=== PATIENT | female | born 1985 | race Caucasian/White ===

== ENCOUNTER 2017-09-11 08:53 | Observation (INO) | payer OTHER, SELFPAY | END 2017-09-13 08:50 | disposition home or self-care (01) | PROVIDERS: Admitting Provider Internal Medicine Adolescent Medicine; Emergency Provider Emergency Medicine; Family Provider Physician Assistant; Visit Provider Internal Medicine Adolescent Medicine | DX: R10.31 Right lower quadrant pain (principal); K52.9 Noninfective gastroenteritis and colitis, unspecified | CPT/HCPCS: 36415; 74177; 80053; 81001; 81025; 82150; 83690; 84703; 85025; 87086; 87507; 96365; 96366; 96374; 96375; 99285; G0378; J1956; J2405; Q9967 ==

== ENCOUNTER → 2017-10-04 10:32 | Outpatient (CLI) | payer OTHER, SELFPAY ==
--- NOTE | 2017-10-04 10:38 | US_ITS ---
US abdomen limited HISTORY: ITS.REASON: ABD PAIN, NAUSEA, DIARRHEA ORDERING PHYSICIAN: Dina France PATIENT AGE: 32 years COMPARISON: CT scan of 09/11/2017 FINDINGS: Pancreas: Unremarkable. Liver: Unremarkable. Right kidney: Unremarkable. Gallbladder: No gallstones, pericholecystic fluid, biliary dilatation, or ductal dilatation. IMPRESSION: Negative right upper quadrant ultrasound
== END ==
PROVIDERS: Family Provider Physician Assistant; PCP Physician Assistant; Visit Provider Physician Assistant
DX: R10.84 Generalized abdominal pain (principal); R11.0 Nausea; R19.7 Diarrhea, unspecified
CPT/HCPCS: 76705

== ENCOUNTER → 2018-12-16 16:05 | Outpatient (CLI) | payer OTHER, SELFPAY ==
--- NOTE | 2018-12-16 16:41 | XR_ITS ---
XR chest 2V HISTORY: Shortness of air ITS.REASON: SOA ORDERING PHYSICIAN: Dina France PATIENT AGE: 33 years COMPARISON: None FINDINGS: The cardiomediastinal silhouette and pulmonary vascularity are within normal limits. The lungs are clear without infiltrates, suspicious nodules, or pleural effusions. No acute bony abnormalities. IMPRESSION: Negative chest, no acute finding
--- NOTE | 2018-12-16 16:42 | XR_ITS ---
XR KUB HISTORY: ITS.REASON: RECENT , SWELLING, ABD DISTENTION,ANEMIA ORDERING PHYSICIAN: Dina France PATIENT AGE: 33 years COMPARISON: 59 4 superior oblique manner no acute rib due to the July exam October) dictated: Degenerative FINDINGS: The bowel gas pattern is unremarkable. No obvious obstruction.. No abnormal calcifications are evident. No obvious renal or ureteral calculi.. No acute bony anomalies evident. There is mild amount of retained colonic feces IMPRESSION: Mild constipation
[2018-12-16 17:11] LABS: Basophils % 0.4 % (0.1-2.0); Eosinophils # 0.2 K/mm3 (0.0-0.4); Eosinophils % 2.2 % (0.1-12.0); Hematocrit 33.5 % (37.0-47.0); Hemoglobin 11.2 g/dL (12.2-16.2); Lymphocytes # 2.2 K/mm3 (0.7-4.5); Lymphocytes % 23.3 % (10-50); Mean Corpuscular HGB Conc 33.3 g/dL (31.8-35.4); Mean Corpuscular Volume 93.1 fl (81-99); Mean Platelet Volume 7.5 fl (7.4-10.4); Monocytes # 0.5 K/mm3 (0.1-1.0); Monocytes % 5.6 % (1.7-9.3); Neutrophils # 6.6 K/mm3 (1.8-7.8); Neutrophils % 68.6 % (37.0-80.0); Platelet Count 317 K/mm3 (142-424); Red Cell Distribution Width 13.8 % (11.5-17.5); White Blood Count 9.6 K/mm3 (4.8-10.8)
[2018-12-16 18:56] LABS: Alanine Aminotransferase 55 U/L (12-78); Albumin Level 2.4 gm/dL (3.4-5.0); Albumin/Globulin Ratio 0.7 (1.1-1.8); Alkaline Phosphatase 161 U/L (46-116); Anion Gap 15.1 mEq/L (5-15); Aspartate Amino Transferase 33 U/L (15-37); Bilirubin,Total 0.3 mg/dL (0.2-1.0); Blood Urea Nitrogen 9 mg/dL (7-18); Calcium 8.8 mg/dL (8.5-10.1); Carbon Dioxide 23 mmol/L (21.0-32.0); Chloride 108 mmol/L (98-107); Creatinine,Serum 0.68 mg/dL (0.55-1.02); Estimated Glomerular Filt Rate 100 ml/min (>60); GFR (African American) 121 ML/MIN (>60); Globulin 3.5 gm/dl (1.3-3.2); Glucose 72 mg/dL (74-106); Potassium 4.1 mmoL/L (3.5-5.1); Sodium 142 mmol/L (136-145); Total Protein,Serum 5.9 gm/dL (6.4-8.2)
== END ==
PROVIDERS: Visit Provider Physician Assistant
DX: Z98.890 Other specified postprocedural states (principal); R14.0 Abdominal distension (gaseous); R06.02 Shortness of breath; D64.9 Anemia, unspecified
CPT/HCPCS: 36415; 71046; 74018; 80053; 83880; 85025

== ENCOUNTER 2019-03-06 09:22 | Emergency (ER) | payer OTHER, SELFPAY ==
[2019-03-06 09:36] VITALS: BP 108/73; PULSE 73; RESP 16; TEMP 37.1; O2SAT 100; BMI 32.8
--- NOTE | 2019-03-06 09:36 | XR_ITS ---
XR wrist LT min 3V HISTORY ITS.REASON: pain ORDERING PHYSICIAN: Rafat Pathak APRN PATIENT AGE: 33 years Comparison: None FINDINGS: No fracture or dislocation. No lytic or blastic change. There is normal mineralization.. The joint spaces are well-preserved. No significant degenerative/arthritic changes. No erosive changes evident.. IMPRESSION: Negative wrist
--- NOTE | 2019-03-06 09:39 | HMH.EDUTC ---
[facility] – [place] Clinical Impression: Wrist pain, left Disposition: Home, Self-Care Condition on Discharge: Good Instructions: Tendinopathy, DI for Wrist Pain Additional Instructions: Rest your wrist, avoid activities that make the pain worse. Wear the wrist splint. Take the ibuprofen for pain and inflammation. I put in a referral to orthopedics. Please call Dr. Arriaza and get an appointment to let her check your wrist. Follow up with your regular doctor. GO TO THE ER FOR ANY WORSENING SYMPTOMS Prescriptions: Ibuprofen [Ibuprofen 600mg Tablet] 600 mg PO Q6HP PRN #30 tab PRN Reason: Mild Pain Referrals: Provider,Referral, MD [Primary Care Provider] - Time of Disposition: 10:01 Medical Decision Making - Medical Records Medical records reviewed: Yes: I reviewed the patient's medical records. - Ronal Inquiry Pt receiving controlled substance: No Ronal was queried for this patient: No Vital Signs: 03/06/19 09:36 03/06/19 10:04 Temperature 98.7 F 98.7 F Temperature Source Oral Oral Pulse Rate 73 Pulse Rate [Right Brachial] 73 Respiratory Rate 16 16 Blood Pressure 108/73 L Blood Pressure [Right Arm] 108/73 L Blood Pressure Mean [Right Arm] 84 Blood Pressure Source Automatic Cuff Blood Pressure Source [Right Arm] Automatic Cuff Blood Pressure Position Sitting Blood Pressure Position [Right Arm] Sitting 02 Sat by Pulse Oximetry 100 Oxygen Delivery Method Room Air Room Air - Radiology Data #1 Image(s): Wrist Image Reviewed: Yes I reviewed the patient's radiology image, Yes I have reviewed radiologist's interpretation Preliminary Findings: No Fracture Seen [facility] [place] HPI - General Stated complaint: Lt wrist pain Time Seen by Provider: 03/06/19 09:45 - History of Present Illness Provider Complaint: She c/o wrist pain that has been coming and going for the past 2 weeks or so. She denies any known injury. She did have a baby 2 months ago that she is carrying a lot. She thinks her pain may be related to this. She denies any swelling. - Related Data Previous Rx's Medication Instructions Recorded Ibuprofen [Ibuprofen 600mg 600 mg PO Q6HP PRN #30 tab 03/06/19 Tablet] Allergies Allergy/AdvReac Type Severity Reaction Status Date / Time No Known Allergies Allergy Verified 03/06/19 09:40 [facility] History - Hepatitis A Screen Attestation statement:: This patient has been screened for Hepatitis A risk factors. I have reviewed the patient's past medical history: Yes ROS Obtained: Yes All systems reviewed & no additional complaints - Constitutional Constitutional: Denies chills, Denies fever(s) - ENT Ears, Nose, Mouth, and Throat: Denies sore throat - Cardiovascular Cardiovascular: Denies chest pain - Respiratory Respiratory: No chest congestion, No cough - Musculoskeletal Musculoskeletal: Reports as per HPI - Integumentary/Breasts Skin/Breast: Denies redness, Denies rash, Denies wounds Physical Exam - General General appearance: alert, in no apparent distress - Head Head exam: atraumatic, normocephalic, normal inspection - Eye Eye exam: Present: normal appearance, PERRL, EOMI - ENT ENT exam: Present: normal exam, normal oropharynx, mucous membranes moist, TM's normal bilaterally, normal external ear exam - Neck Neck exam: Present: normal inspection, full ROM, trachea midline. Absent: meningismus, lymphadenopathy - Chest Chest inspection: Present: normal inspection, symmetric chest wall rise. Absent: tenderness - Respiratory Respiratory exam: Present: normal lung sounds bilaterally. Absent: respiratory distress - Cardiovascular Cardiovascular exam: Present: regular rate, normal rhythm. Absent: JVD - Abdominal Exam Abdominal exam: Present: soft, normal bowel sounds. Absent: distention, tenderness, guarding - Extremities Exam Extremities exam: Present: normal capillary refill - Expanded Upper Extre
--- NOTE | 2019-03-06 09:43 | ED_ITS ---
[facility] [place] [place] Clinical Impression: Wrist pain, left Disposition: Home, Self-Care Condition on Discharge: Good Instructions: Tendinopathy, DI for Wrist Pain Additional Instructions: Rest your wrist, avoid activities that make the pain worse. Wear the wrist splint. Take the ibuprofen for pain and inflammation. I put in a referral to orthopedics. Please call Dr. Arriaza and get an appointment to let her check your wrist. Follow up with your regular doctor. GO TO THE ER FOR ANY WORSENING SYMPTOMS Prescriptions: Ibuprofen [Ibuprofen 600mg Tablet] 600 mg PO Q6HP PRN #30 tab PRN Reason: Mild Pain Referrals: Provider,Referral, MD [Primary Care Provider] - Time of Disposition: 10:01 Medical Decision Making - Medical Records Medical records reviewed: Yes: I reviewed the patient's medical records. - Ronal Inquiry Pt receiving controlled substance: No Ronal was queried for this patient: No Vital Signs: 03/06/19 09:36 03/06/19 10:04 Temperature 98.7 F 98.7 F Temperature Source Oral Oral Pulse Rate 73 Pulse Rate [Right Brachial] 73 Respiratory Rate 16 16 Blood Pressure 108/73 L Blood Pressure [Right Arm] 108/73 L Blood Pressure Mean [Right Arm] 84 Blood Pressure Source Automatic Cuff Blood Pressure Source [Right Arm] Automatic Cuff Blood Pressure Position Sitting Blood Pressure Position [Right Arm] Sitting 02 Sat by Pulse Oximetry 100 Oxygen Delivery Method Room Air Room Air - Radiology Data #1 Image(s): Wrist Image Reviewed: Yes I reviewed the patient's radiology image, Yes I have reviewed radiologist's interpretation Preliminary Findings: No Fracture Seen [facility] [place] HPI - General Stated complaint: Lt wrist pain Time Seen by Provider: 03/06/19 09:45 - History of Present Illness Provider Complaint: She c/o wrist pain that has been coming and going for the past 2 weeks or so. She denies any known injury. She did have a baby 2 months ago that she is carrying a lot. She thinks her pain may be related to this. She denies any swelling. - Related Data Previous Rx's Medication Instructions Recorded Ibuprofen [Ibuprofen 600mg 600 mg PO Q6HP PRN #30 tab 03/06/19 Tablet] Allergies Allergy/AdvReac Type Severity Reaction Status Date / Time No Known Allergies Allergy Verified 03/06/19 09:40 [facility] [place] History - Hepatitis A Screen Attestation statement:: This patient has been screened for Hepatitis A risk factors. I have reviewed the patient's past medical history: Yes ROS Obtained: Yes All systems reviewed & no additional complaints - Constitutional Constitutional: Denies chills, Denies fever(s) - ENT Ears, Nose, Mouth, and Throat: Denies sore throat - Cardiovascular Cardiovascular: Denies chest pain - Respiratory Respiratory: No chest congestion, No cough - Musculoskeletal Musculoskeletal: Reports as per HPI - Integumentary/Breasts Skin/Breast: Denies redness, Denies rash, Denies wounds Physical Exam - General General appearance: alert, in no apparent distress - Head Head exam: atraumatic, normocephalic, normal inspection - Eye Eye exam: Presen
[2019-03-06 10:04] VITALS: BP 108/73; PULSE 73; RESP 16; TEMP 37.1; O2SAT 100
== END 2019-03-06 10:14 | disposition home or self-care (01) ==
PROVIDERS: Emergency Provider Nurse Practitioner Family
DX: M25.532 Pain in left wrist (principal)
CPT/HCPCS: 29125; 73110; 99201; 99202

== ENCOUNTER 2021-04-24 19:08 | Emergency (ER) | payer MEDICAID, SELFPAY ==
[2021-04-24 20:00] VITALS: BP 126/81; PULSE 90; RESP 22; TEMP 37.5; O2SAT 98; BMI 41.1
--- NOTE | 2021-04-24 20:20 | HMH.EDUTC ---
[facility] [place] Clinical Impression: UTI (urinary tract infection) Qualifiers: Urinary tract infection type: site unspecified Hematuria presence: with hematuria Qualified Code(s): N39.0 - Urinary tract infection, site not specified Disposition: Home, Self-Care Condition on Discharge: Good Instructions: Sore Throat, DI for Urinary Tract Infection (UTI), DI for Nasal Congestion, Nitrofurantoin Additional Instructions: *Monitor Temp, Over the counter Motrin or Tylenol as directed/as needed Tylenol every 4 hours and Motrin every 6 hours (as long as your family doctor has told you that you can take it) for fever or pain. and straight to ER if unable to lower temp less than 101.0 after medication given *Warm salt water gargles may help to soothe the throat *Throat Lozenges *Warm fluids like tea with honey may help to soothe the throat *Sleep elevated *Humidifier/Vaporizer Follow up IMMEDIATELY for new or worsening symptoms or no Noticeable improvement over the next 48-72 hours. 911 for difficulty breathing or swallowing *Increase fluids. Water not Soda or Tea *Start antibiotic immediately and be sure to take as ordered for the FULL length of time although you should start to see improvement over the next 48 hours *Be SURE to follow up anytime for new or worsening symptoms with your family doctor. AND in 48 hours for urine culture results with your family doctor, if you do not have a doctor then you may call back to the [facility] for urine culture results and further treatment. We do recommend that you choose and establish care with a Primary Care Physician. AND follow up with them in 10-14 days to repeat UA to ensure infection is resolved and blood no longer present *Be sure to let your PCP know that we sent urine cultures from the [facility] so they can follow up to ensure that you area the on the correct antibiotic Call your doctor office and make appointment for 48 hours (2 days from today) to follow up and get the results of your urine culture and further treatment You were tested for today for COVID19 your test result should be back in the next 24-48 hours, you may call to the [facility] to see if your test results are back in the next 48 hours [phone] [facility] hours are 9am-9pm You was given a handout with instructions for Self Quarantine and Self isolation for while you wait on test results and what to do if they are positive If you are positive the Health Dept will be contacting you also Prescriptions: Nitrofurantoin Monohyd/M-Cryst [Macrobid 100 mg Capsule] 100 mg PO BID 10 Days #20 cap Transmission Status: Sent to [facility] Referrals: Desi Mcgregor APRN [Primary Care Provider] - As needed Time of Disposition: 20:44 Medical Decision Making - Ronal Inquiry Pt receiving controlled substance: No Ronal was queried for this patient: No Vital Signs: 04/24/21 20:00 Temperature 99.5 F Temperature Source Oral Pulse Rate [Right Brachial] 90 Respiratory Rate 22 Blood Pressure [Right Arm] 126/81 Blood Pressure Mean [Right Arm] 96 Blood Pressure Source [Right Arm] Automatic Cuff Blood Pressure Position [Right Arm] Sitting 02 Sat by Pulse Oximetry 98 Oxygen Delivery Method Room Air - Lab Data Lab results reviewed: Yes: I reviewed the patient's lab results. Lab Results 04/24/21 19:45: Urine Color Yellow, Urine Appearance Cloudy, Urine pH 7.5, Ur Specific [place] 1.015, Urine Protein Negative, Urine Glucose (UA) Negative, Urine Ketones Negative, Urine Blood Trace, Urine Nitrate Positive A, Urine Bilirubin Negative, Urine Urobilinogen 1, Ur Leukocyte Esterase 2+ A Orders (Tests/Meds): ED MEDICATIONS Discontinued Medications Generic Name Dose Route Start Last Admin Trade Name Asa PRN Reason Stop Dose Admin Ceftriaxone Sodium 1 gm 04/24/21 20:26 04/24/21 20:38 Ceftriaxone 1gm Vial IM 04/24/21 20:27 1 gm ONCE ONE Administration Protocol Lidocaine HCl 0 ml 04/24/21 20:26 04/24/21 20:38
[2021-04-24 20:41] LABS: Apearance,Urine Cloudy (Clear); Color,Urine Yellow (Yellow); PH,Urine 7.5 (5.0-8.5); Specific Gravity, Urine 1.015 (1.005-1.030)
[2021-04-24 20:42] LABS: Bilirubin,Urine Negative (Negative); Blood, Urine Trace (Negative); Glucose,Urine (UA) Negative (Negative); Ketones,Urine Negative (Negative); Protein,Urine Negative (Negative); UTC Leukocyte Esterase,Urine 2+ (Negative); UTC Nitrate,Urine Positive (Negative); Urobilinogen,Urine 1 EU/dl (0.2)
[2021-04-24 20:53] VITALS: BP 126/81; PULSE 90; RESP 22; TEMP 37.5; O2SAT 98
--- NOTE | 2021-04-25 12:16 | PC.NURSE ---
Patient called to get covid results, reported as positive. Advised patient to quarantine and expect a call from the health department for further instructions.
== END 2021-04-24 20:58 | disposition home or self-care (01) ==
PROVIDERS: Emergency Provider Nurse Practitioner; PCP Nurse Practitioner Family
DX: N30.00 Acute cystitis without hematuria (principal); B96.20 Unspecified Escherichia coli [E. coli] as the cause of diseases classified elsewhere; U07.1 COVID-19; F17.210 Nicotine dependence, cigarettes, uncomplicated
CPT/HCPCS: 81003; 87086; 87088; 87186; 96372; 99202; G0463; U0003

== ENCOUNTER 2021-05-02 15:56 | Emergency (ER) | payer MEDICAID, SELFPAY ==
[2021-05-02 15:59] VITALS: BMI 26.6
--- NOTE | 2021-05-02 16:04 | XR_ITS ---
PROCEDURE: XR ANKLE RT MIN 3V CLINICAL INDICATION: FALL/INJURY Pain and swelling COMPARISON: CR ANKR3 ANKLE-RT-3 VIEWS from 09/29/2015 FINDINGS: There is mild diffuse soft tissue swelling on both sides greater on the lateral aspect. No fracture or dislocation. Mortise is preserved and the talar dome has an unremarkable appearance. The joint spaces are well-preserved. No significant degenerative/arthritic changes. No erosive changes evident. Other findings:None. IMPRESSION: Soft tissue swelling otherwise negative Dictated by: Leland Ho MD 05/02/2021 16:20 Leland Ho MD in [place] 05/02/2021 16:20
[2021-05-02 16:52] VITALS: BP 131/81; PULSE 78; RESP 19; TEMP 36.7; O2SAT 97; BMI 41.1
[2021-05-02 16:57] VITALS: BP 131/81; PULSE 78; RESP 18; TEMP 36.7; O2SAT 97
--- NOTE | 2021-05-02 17:25 | HMH.EDUTC ---
[facility] [place] Clinical Impression: Right ankle sprain Qualifiers: Encounter type: initial encounter Involved ligament of ankle: unspecified ligament Qualified Code(s): S93.401A - Sprain of unspecified ligament of right ankle, initial encounter Disposition: Home, Self-Care Condition on Discharge: Good Instructions: How to Use Crutches, DI for Ankle Sprain Additional Instructions: Rest the extremity, apply ice for 15 minutes as tolerated three or four times per day, Elevate the extremity as tolerated while you are resting. Take ibuprofen for pain. I sent in a prescription to your pharmacy. Follow up with Dr. Wolfe (podiatry). I put in a referral but you need to call her office and schedule an appointment. Follow up with your regular doctor. GO TO THE ER FOR ANY WORSENING SYMPTOMS Prescriptions: Ibuprofen [Ibuprofen 800mg Tablet] 800 mg PO Q8HP PRN #30 tab PRN Reason: Moderate Pain Transmission Status: Received by [facility] Referrals: Desi Mcgregor APRN [Primary Care Provider] - Radha Wolfe DPM [Staff Physician] - Time of Disposition: 17:29 Medical Decision Making - Medical Records Medical records reviewed: No: I reviewed the patient's medical records. - Ronal Inquiry Pt receiving controlled substance: No Vital Signs: 05/02/21 16:52 05/02/21 16:57 Temperature 98.1 F 98.1 F Temperature Source Oral Pulse Rate 78 Pulse Rate [Left] 78 Respiratory Rate 19 18 Blood Pressure 131/81 Blood Pressure [Right Arm] 131/81 Blood Pressure Mean [Right Arm] 97 02 Sat by Pulse Oximetry 97 Orders (Tests/Meds): ORDERS Category Date Time Status Covid-19 Nasal PCR ([facility]) Routine Lab 05/02/21 16:49 Received - Radiology Data #1 Image(s): Ankle Image Reviewed: Yes I reviewed the patient's radiology image, Yes I have reviewed radiologist's interpretation Preliminary Findings: Normal/NAD PROCEDURE: XR ANKLE RT MIN 3V CLINICAL INDICATION: FALL/INJURY Pain and swelling COMPARISON: CR ANKR3 ANKLE-RT-3 VIEWS from 09/29/2015 FINDINGS: There is mild diffuse soft tissue swelling on both sides greater on the lateral aspect. No fracture or dislocation. Mortise is preserved and the talar dome has an unremarkable appearance. The joint spaces are well-preserved. No significant degenerative/arthritic changes. No erosive changes evident. Other findings:None. IMPRESSION: Soft tissue swelling otherwise negative Dictated by: Leland Ho MD 05/02/2021 16:20 Leland Ho MD in [place] 05/02/2021 16:20 [facility] [place] - General Stated complaint: AO fall 05/01 injured R ankle Time Seen by Provider: 05/02/21 16:55 Mode of Arrival: Ambulatory Source of Information: Patient Limitations: No Limitations Description of Symptoms (Recalled from Triage Doc. by RN): Right ankle pain-Pt states she fell yesterday and her ankle is swollen and bruised. HEENT Symptoms (Recalled from RN notes): No Resp Symptoms (Recalled from RN notes): No Skin Symptoms (Recalled from RN notes): No MS Symptoms (Recalled from RN notes): Yes Functional Status (Recalled from RN notes): wnl - History of Present Illness Provider Complaint: She states that she twisted her right ankle while going down stairs yesterday at her school. She c/o right ankle pain and swelling since then. She is able to walk on it, but it hurts any time she bears weigth or bends it. - Related Data Previous Rx's Medication Instructions Recorded Ibuprofen [Ibuprofen 600mg 600 mg PO Q6HP PRN #30 tab 03/06/19 Tablet] Nitrofurantoin Monohyd/M-Cryst 100 mg PO BID 10 Days #20 cap 04/24/21 [Macrobid 100 mg Capsule] Ibuprofen [Ibuprofen 800mg 800 mg PO Q8HP PRN #30 tab 05/02/21 Tablet] Allergies Allergy/AdvReac Type Severity Reaction Status Date / Time No Known Allergies Allergy Verified 05/02/21 16:20 - Worker's Comp Is this a Worker's Comp case?: No [facility] History - Hepat
--- NOTE | 2021-05-03 13:39 | PC.NURSE ---
PT NOTIFIED OF POSITIVE COVID RESULTS
== END 2021-05-02 17:38 | disposition home or self-care (01) ==
PROVIDERS: Emergency Provider Nurse Practitioner Family; PCP Nurse Practitioner Family
DX: S93.401A Sprain of unspecified ligament of right ankle, initial encounter (principal); W10.9XXA Fall (on) (from) unspecified stairs and steps, initial encounter; Y92.89 Other specified places as the place of occurrence of the external cause; U07.1 COVID-19; F17.210 Nicotine dependence, cigarettes, uncomplicated
CPT/HCPCS: 29515; 73610; 99203; G0463; U0003

== ENCOUNTER 2021-09-21 17:28 | Emergency (ER) | payer MEDICAID, SELFPAY ==
[2021-09-21 17:41] VITALS: BP 120/55; PULSE 85; RESP 18; TEMP 36.8; O2SAT 96; BMI 42.2
--- NOTE | 2021-09-21 18:13 | HMH.EDUTC ---
[facility] [place] Clinical Impression: Otitis media Qualifiers: Otitis media type: unspecified Laterality: left Qualified Code(s): H66.92 - Otitis media, unspecified, left ear Otitis externa Qualifiers: Otitis externa type: unspecified type Chronicity: unspecified Laterality: left Qualified Code(s): H60.92 - Unspecified otitis externa, left ear Disposition: Home, Self-Care Condition on Discharge: Good Instructions: Middle Ear Infections (Alternative Therapy), Middle Ear Infection, DI for Otitis Externa, Amoxicillin, Neomycin, Polymyxin, and Hydrocortisone Otic Additional Instructions: Use the drops as prescribed in left ear as directed Take oral medication as prescribed Follow up with Family Doctor if no improvement or any worsening of symptoms Over the counter Motrin and/or Tylenol for pain Return if needed Straight to ER if any life threatening Prescriptions: Amoxicillin [Amoxicillin 500mg Cap] 500 mg PO TID #30 cap Transmission Status: Pending to [facility] Neomycin/Polymyxin B Sulf/Hc [Ijcxuddw-Eblrkbhfc-ZA Otic Susp 10mL] 4 drops EAR-LEFT QID 7 Days #10 ml Transmission Status: Pending to [facility] Referrals: Desi Mcgregor APRN [Primary Care Provider] - As needed Time of Disposition: 18:21 Medical Decision Making - Ronal Inquiry Pt receiving controlled substance: No Ronal was queried for this patient: No Vital Signs: 09/21/21 17:41 Temperature 98.2 F Temperature Source Oral Pulse Rate [Left] 85 Respiratory Rate 18 Blood Pressure [Right Arm] 120/55 L Blood Pressure Mean [Right Arm] 76 02 Sat by Pulse Oximetry 96 [facility] [place] - General Stated complaint: L ear pain Time Seen by Provider: 09/21/21 18:13 Mode of Arrival: Ambulatory Source of Information: Patient Limitations: No Limitations Description of Symptoms (Recalled from Triage Doc. by RN): pt c/o a L ear ache and fever. x5 days HEENT Symptoms (Recalled from RN notes): Yes (L ear ache) Resp Symptoms (Recalled from RN notes): No Skin Symptoms (Recalled from RN notes): No MS Symptoms (Recalled from RN notes): No Functional Status (Recalled from RN notes): wnl - History of Present Illness Provider Complaint: Patient states that she has been having pain in her left ear for about 5 days and state that ear hurts when she touchs it and feels like it is starting to swell States that today her ear was hurting worse so she came in - Related Data Previous Rx's Medication Instructions Recorded Ibuprofen [Ibuprofen 600mg 600 mg PO Q6HP PRN #30 tab 03/06/19 Tablet] Nitrofurantoin Monohyd/M-Cryst 100 mg PO BID 10 Days #20 cap 04/24/21 [Macrobid 100 mg Capsule] Ibuprofen [Ibuprofen 800mg 800 mg PO Q8HP PRN #30 tab 05/02/21 Tablet] Amoxicillin [Amoxicillin 500mg 500 mg PO TID #30 cap 09/21/21 Cap] Neomycin/Polymyxin B Sulf/Hc 4 drops EAR-LEFT QID 7 Days #10 ml 09/21/21 [Tnhjdact-Znugzrqjm-BX Otic Susp 10mL] Allergies Allergy/AdvReac Type Severity Reaction Status Date / Time No Known Allergies Allergy Verified 05/02/21 16:20 - Worker's Comp Is this a Worker's Comp case?: No [facility] History - Hepatitis A Screen Drug use history?: No High risk sexual behaviors?: No History of sexually transmitted infection?: No Currently employed?: No Childcare worker?: No Do you have indoor plumbing?: Yes Do you have electricity?: Yes Attestation statement:: This patient has been screened for Hepatitis A risk factors. I have reviewed the patient's past medical history: Yes Laterality Cases: Bilateral: Tonsillectomy Fractures: Yes (SKULL AND RIGHT HAND) - Social History Smoking Status: Current every day smoker Tobacco Type: cigarettes # Packs/Day (cigarettes): 1 Alcohol Intake: never Occupational Status: other ROS Obtained: Yes All systems reviewed & no additional complaints, Yes Systems reviewed as appropriate & no additional complaints - Constitutional Constitutional: R
[2021-09-21 18:21] VITALS: BP 120/55; PULSE 85; RESP 18; TEMP 36.8
== END 2021-09-21 18:32 | disposition home or self-care (01) ==
PROVIDERS: Emergency Provider Nurse Practitioner; PCP Nurse Practitioner Family
DX: H66.92 Otitis media, unspecified, left ear (principal); H60.92 Unspecified otitis externa, left ear; F17.210 Nicotine dependence, cigarettes, uncomplicated
CPT/HCPCS: 99202; G0463

== ENCOUNTER 2023-05-18 14:13 | Emergency (ER) | payer OTHER, MEDICAID, SELFPAY ==
[2023-05-18 14:11] VITALS: BP 145/97; PULSE 99; RESP 20; TEMP 36.7; O2SAT 100; BMI 38.2
--- NOTE | 2023-05-18 14:13 | ECG_ITS ---
APPROVED REPORT Exam: Resting ECG HR:99 bpm ECG Measurements Heart Rate 99 AXES TN 141 P 63 QRSd 89 QRS 66 QT 350 T 63 QTc 406 Conclusion SINUS RHYTHM NORMAL ECG UNCONFIRMED REPORT Electronically signed by : Aj Palma MD 05/21/2023 17:25:54
[2023-05-18 14:21] VITALS: BMI 38.2
--- NOTE | 2023-05-18 14:21 | XR_ITS ---
PROCEDURE INFORMATION: Exam: XR Chest Exam date and time: 05/18/23 03:18 PM Age: 38 years old Clinical indication: Pain; Chest pressure; Additional info: Chest pain TECHNIQUE: Imaging protocol: Radiologic exam of the chest. Views: 1 view. COMPARISON: CR CXR2V XR chest 2V 12/16/18 04:43 PM FINDINGS: Lungs: Unremarkable. No consolidation. Pleural spaces: Unremarkable. No pleural effusion. No pneumothorax. Heart/Mediastinum: Unremarkable. No cardiomegaly. Bones/joints: Unremarkable. IMPRESSION: No acute findings.
[2023-05-18 14:31] VITALS: BP 125/75; PULSE 79; O2SAT 96
[2023-05-18 14:35] LABS: Basophils # 0.1 K/mm3 (0-0.2); Basophils % 0.7 % (0.1-2.0); Eosinophils # 0.2 K/mm3 (0.0-0.4); Eosinophils % 2.5 % (0.1-12.0); Hematocrit 43.3 % (37.0-47.0); Hemoglobin 14.2 g/dL (12.2-16.2); Lymphocytes % 26.6 % (10-50); Mean Corpuscular HGB Conc 32.9 g/dL (31.8-35.4); Mean Corpuscular Hemoglobin 30.1 pg (27.0-31.2); Mean Corpuscular Volume 91.6 fl (81-99); Mean Platelet Volume 7.4 fl (7.4-10.4); Monocytes # 0.5 K/mm3 (0.1-1.0); Monocytes % 6.9 % (1.7-9.3); Neutrophils # 4.7 K/mm3 (1.8-7.8); Neutrophils % 63.3 % (37.0-80.0); Platelet Count 329 K/mm3 (142-424); Red Blood Count 4.72 M/mm3 (4.20-5.40); Red Cell Distribution Width 13.3 % (11.5-17.5); White Blood Count 7.4 K/mm3 (4.8-10.8)
[2023-05-18 14:36] LABS: Chloride 104 mmol/L (98-107); Potassium 3.8 mmoL/L (3.5-5.1); Sodium 140 mmol/L (136-145)
[2023-05-18 14:39] LABS: Alanine Aminotransferase 58 U/L (12-78); Albumin Level 3.9 g/dl (3.5-5.0); Albumin/Globulin Ratio 1.2 (1.1-1.8); Alkaline Phosphatase 118 U/L (38-126); Anion Gap 12.8 mEq/L (5-15); Aspartate Amino Transferase 70 U/L (14-36); Bilirubin,Total 0.5 mg/dl (0.2-1.3); Blood Urea Nitrogen 10 mg/dl (7-17); Carbon Dioxide 27 mmol/L (22.0-30.0); Creatinine Clearance Estimated 211 mL/min (50-200); Estimated Glomerular Filt Rate 112 ml/min (>60); GFR (African American) 136 ML/MIN (>60); Globulin 3.2 g/dL (1.3-3.2); Total Protein,Serum 7.1 g/dl (6.3-8.2)
[2023-05-18 14:40] LABS: Calcium 9.2 mg/dl (8.4-10.2); Glucose 99 mg/dl (74-100)
--- NOTE | 2023-05-18 14:42 | HMH.EDGENADL ---
Discharge Plan Disposition Patient Disposition: Home, Self-Care Condition: Good Prescriptions Prescriptions: No Action prednisone 20 mg tablet 40 mg PO DAILY Qty: 8 0RF codeine-guaifenesin 10-100 mg/5 mL liquid 10 ml PO Q4-6H PRN (Reason: cough) Qty: 120 1RF citalopram [Celexa] 20 mg tablet 20 mg PO DAILY 30 Days Qty: 30 0RF Referrals Follow up/Referrals: Provider,Referral, [Referring] - See instructions Activity Restrictions/Add. Instructions Additional Instructions/Restrictions: You were evaluated in the emergency department today. Please follow-up closely with your primary care provider. Return to the emergency department for new or worsening symptoms. Clinical Impressions Clinical Impression: Atypical chest pain Instructions Patient Instructions: DI for Atypical Chest Pain Discharge ED Provider: Hailey Jack General Adult HPI <Ora Hale MD - Last Filed: 05/18/23 14:46> General Chief complaint: Chest Pain Stated complaint: chest pain Time Seen by Provider: 05/18/23 14:37 Mode of Arrival: Ambulatory Source of Information: Patient Limitations: No Limitations Description of Symptoms (Recalled from ER Triage Doc. by RN): Pt reports mid sternal area chest pressure. Reports began approx 1:30 pm today. Pt denies radiation of pain, denies SOA, cough or fever. Pt reports laying on cough at home when pain started. History of Present Illness HPI narrative: Patient is a 38-year-old here with chest pain. This began abruptly at 1:30 PM today she describes it as a chest discomfort or pressure extending over the bilateral anterior aspect of her chest wall. No radiation there was some dyspnea which is improving. No diaphoresis associated with this. No history of DVT or PE no lower extremity swelling hemoptysis prolonged immobilizations or other risk factors. She has no history of any coronary artery disease heart failure or any other cardiopulmonary pathology in the past. States she has had some significant anxiety and stress recently but nothing out of the ordinary today. No fevers chills cough or any other preceding symptoms. Related Data Previous Rx's Medication Instructions Recorded citalopram 20 mg tablet (Celexa) 20 mg PO DAILY 30 days #30 tabs 07/19/22 codeine 10 mg-guaifenesin 100 mg/5 10 ml PO Q4-6H PRN cough #120 mL 08/20/22 mL oral liquid prednisone 20 mg tablet 40 mg PO DAILY #8 tabs 08/20/22 Allergies Allergy/AdvReac Type Severity Reaction Status Date / Time No Known Allergies Allergy Verified 08/20/22 13:55 [facility] <Ora Hale MD - Last Filed: 05/18/23 14:46> [facility] Disclaimer: The information contained in this section may have been updated after the patient was seen, as this information can be updated by other users. Medical History Anxiety Depression Surgical History H/O section History of skin graft Hx of tonsillectomy Hx of tubal ligation Family History Father Hypertension Hyperlipidemia Diabetes Coronary artery disease Mother Thyroid disorder Hyperlipidemia Hypertension Social History Smoking Status: Current some day smoker tobacco type: cigarettes packs per day: 1 and e-cigarettes (vapes) second hand exposure: No alcohol intake: never current occupational status: student and other Travel in the last 8 weeks: None household members: family housing: house <Ora Hale MD - Last Filed: 05/18/23 14:46> ROS Obtained: Yes All systems reviewed & no additional complaints except as documented Physical Exam <Ora Hale MD - Last Filed: 05/18/23 14:46> General General appearance: anxious (Tearful) Respiratory Respiratory exam: Present normal lung sounds bilaterally; Absent respiratory distress, wheezes or strid
[2023-05-18 14:54] LABS: Troponin I < 0.01 ng/ml (0.00-0.034)
[2023-05-18 15:00] VITALS: BP 123/78; PULSE 84; RESP 18; O2SAT 98
[2023-05-18 15:00] LABS: D-Dimer 0.34 ug/mL (0.0-0.5)
[2023-05-18 18:37] LABS: Troponin I < 0.01 ng/ml (0.00-0.034)
[2023-05-18 19:00] VITALS: BP 131/82; PULSE 87; RESP 16; TEMP 36.7; O2SAT 98
== END 2023-05-18 19:00 | disposition home or self-care (01) ==
PROVIDERS: Student in an Organized Health Care Education/Training Program; Emergency Provider Emergency Medicine; PCP Nurse Practitioner Family
DX: R07.89 Other chest pain (principal); R06.00 Dyspnea, unspecified; R00.0 Tachycardia, unspecified; F41.9 Anxiety disorder, unspecified; F32.A Depression, unspecified; F17.210 Nicotine dependence, cigarettes, uncomplicated
CPT/HCPCS: 36415; 71045; 80053; 84484; 85025; 85378; 93005; 99285

== ENCOUNTER 2023-11-14 06:50 | Outpatient (CLI) | payer MEDICAID, SELFPAY | END 2023-11-14 23:59 | LOC: LAB.DROPOF 11-18 06:51 | PROVIDERS: PCP Family Medicine; Visit Provider Family Medicine | DX: N39.0 Urinary tract infection, site not specified (principal); B96.29 Other Escherichia coli [E. coli] as the cause of diseases classified elsewhere | CPT/HCPCS: 87086 ==

== ENCOUNTER 2025-03-05 13:30 | Outpatient (CLI) | payer OTHER, SELFPAY ==
--- OUTSIDE RECORDS SUMMARY | 2025-03-05 22:36 | XMS_ITS | Clinical Summary ---
Author Organization [facility] Address [address] [id number] Care Team Providers Care Clay Washer Name Role Phone Unavailable Primary Care Provider Unavailabl e Allergies No known active allergies Medications promethazine (PHENERGAN) 25 mg tabletIndication s:9 weeks gestation of ([facility]),Nausea Take 1 Tab by mouth Every 4 to 6 Hours as needed for Nausea. 30 Tab 05/15/2018 Active prenat.vits,mindi, tcd-vaji-rcjka ( VITAMIN) TabIndications:9 weeks gestation of ([facility]) Take 1 TAB by mouth Daily. 30 Each 3 05/15/2018 Active Active Problems Problem Noted Date Diagnosed Date Cough 12/17/2017 Gastroesophageal reflux disease without esophagi tis 12/17/2017 Social History Tobacco Use Types Packs/Day Years Used Date Smoking Tobacco: Every Day Cigarettes Smokeless Tobacco: Never Tobacco Cessation:Ready to Q uit: No; Counseling Given: No Alcohol Use Standard Drinks/Week Comments No 0 (1 standard drink = 0.6 oz pur e alcohol) Comments Unknown Sex and Gender Information Value Date Recorded Sex Assigned at Not on file Legal Sex Female 10:26 AM EST Gender Identity Not on file Sexual Orientation Not on file Last Filed Vital Signs Vital Sign Reading Time Taken Comments Blood Pressure 109/70 05/15/2018 10:05 AM EDT Pulse 80 05/15/2018 10:05 AM EDT Temperature 36.6 C (97.8 F) 05/15/2018 10:05 AM EDT Respiratory Rate 16 05/15/2018 10:05 AM EDT Oxygen Saturation 100% 02/26/2018 9:42 AM EDT Inhaled Oxygen Concentration - - Weight 93 kg (205 lb) 05/15/2018 10:05 AM EDT Height 162.6 cm (5' 4 ) 05/15/2018 10:05 AM EDT Body Mass Index 35.19 05/15/2018 10:05 AM EDT Plan of Treatment Health Maintenance Due Date Last Done Comments HEP C SCREENING 1986 PAP SMEAR EVERY 3 YR (Cervic al Cancer Screen) 1986 ANNUAL WELLNESS EXAM 1989 DTAP/TDAP/TD VACCINE (1 - Tdap) 2005 INFLUENZA VACCINE (Season Ended) 2025 HEP A VACCINE Aged Out No longer elig ible based on patient's age to complete this topic HIB VACCINE Aged Out No longer eligi ble based on patient's age to complete this topic ROTOVIRUS VACCINE Aged Out No longer eligible based on patient's age to complete this topic
--- OUTSIDE RECORDS SUMMARY | 2025-03-05 22:36 | XMS_ITS | Clinical Summary ---
Author Organization [facility] Address [address] [place] [address] Care Team Providers Care Per Diem Physical Therapist Name Role Phone Jessy Ferguson APRN Primary Care Provider Family History Medical History Relation Name Comments Diabetes Father Relation Name Status Comments Father Social History Tobacco Use Types Packs/Day Years Used Date Smoking Tobacco: Never Assessed Comments Unknown Sex and Gender Information Value Date Recorded Sex Assigned at Not on file Legal Sex Female 7:55 PM EDT Gender Identity Not on file Sexual Orientation Not on file Last Filed Vital Signs Vital Sign Reading Time Taken Comments Blood Pressure 108/60 05/23/2018 3:07 PM EDT Pulse - - Temperature - - Respiratory Rate - - Oxygen Saturation - - Inhaled Oxygen Concentration - - Weight 93.9 kg (207 lb 0.2 oz) 05/23/2018 3:07 P M EDT Height 165.1 cm (5' 5 ) 05/23/2018 3:07 PM EDT Body Mass Index 34.45 05/23/2018 3:07 PM EDT Plan of Treatment Not on file Care Teams Per Diem Physical Therapist Relationship Specialty Start Date End Date Jessy Ferguson APRN [address] [place] [address] PCP - General 02/03/21
--- OUTSIDE RECORDS SUMMARY | 2025-03-05 22:36 | XMS_ITS | Encounter Summary ---
Author Organization [facility] [place] Address [address] [place] [address] Care Team Providers Care Bar Back Name Role Phone Jessy Ferguson APRN Primary Care Provider [phone] Encounter Details Date Type Department Care Team (Late st Contact Info) Description 03/05/2018 Orders Only [facility] [address] [place] [address] Jessy Ferguson APRN [address] [place] [address] Morbid obesity due to excess calories (Primary Dx) Social History Tobacco Use Types Packs/Day Years Used Date Smoking Tobacco: Every Day Cigarettes Smokeless Tobacco: Never Alcohol Use Standard Drinks/Week Comments No 0 (1 standard drink = 0.6 oz pur e alcohol) Comments Unknown Sex and Gender Information Value Date Recorded Sex Assigned at Not on file Legal Sex Female 10:26 AM EST Gender Identity Not on file Sexual Orientation Not on file documented as of this encounter Plan of Treatment Not on file documented as of this encounter Visit Diagnoses Diagnosis Morbid obesity due to excess calories (CMS/HCC)- Primary documented in this encounter Care Teams Bar Back Relationship Specialty Start Date End Date Jessy Ferguson APRN [address] [place] [address] PCP - General Family Practice 10/21/17 11/08/22 documented as of this encounter
== END 2025-03-05 23:59 | disposition home or self-care (01) ==
LOC: LAB.DROPOF 22:34
PROVIDERS: PCP Nurse Practitioner Family; Visit Provider Nurse Practitioner Family
DX: R39.9 Unspecified symptoms and signs involving the genitourinary system (principal); N39.0 Urinary tract infection, site not specified
CPT/HCPCS: 87086; 87088; 87186

== ENCOUNTER 2025-06-13 18:33 | Emergency (ER) | payer OTHER, SELFPAY ==
--- NOTE | 2025-06-13 18:54 | HMH.EDGENADL ---
Discharge Plan Disposition Patient Disposition: Home, Self-Care Condition: Good Prescriptions Prescriptions: No Action ibuprofen 800 mg tablet 800 mg PO Q8H Qty: 90 2RF hydrocodone-acetaminophen 5-325 mg tablet 1 tab PO Q8H PRN (Reason: pain) Qty: 30 0RF Zepbound 12.5 mg/0.5 mL pen injector 12.5 mg SQ WEEKLY hydroxyzine pamoate 50 mg capsule 50 mg PO BID PRN (Reason: anxiety) Qty: 60 2RF citalopram 40 mg tablet See Rx Instructions .ROUTE .COMPLEX Qty: 30 1RF Dose Instruction: TAKE 1 TABLET BY MOUTH ONCE DAILY Rx Instructions: TAKE 1 TABLET BY MOUTH ONCE DAILY clonazepam 0.5 mg tablet 0.5 mg PO DAILY PRN (Reason: severe anxiety) Qty: 14 0RF Referrals Follow up/Referrals: Susan Powers APRN [Primary Care Provider, Family Practice] - See instructions Chavo Lozoya DO [Staff Physician, Orthopedics] - See instructions Activity Restrictions/Add. Instructions Additional Instructions/Restrictions: Use the walking boot until you follow-up in clinic with Dr. Lozoya. Call them tomorrow to schedule an appointment. Take tylenol and ibuprofen as needed for pain control. Clinical Impressions Clinical Impression: Acute ankle pain, Avulsion fracture of calcaneus Print Language Print Language: Faroese Discharge ED Provider: Ignacia Terry Adult HPI General Chief complaint: Extremity Injury, Lower Stated complaint: AO Fall 1800; Injured R Ankle Time Seen by Provider: 06/13/25 18:53 History of Present Illness HPI narrative: Patient is an otherwise healthy 40-year-old female who presented to the emergency department with a right ankle injury. Patient tripped and fell landed onto her right ankle. Patient has been able to ambulate but with pain. Patient reports pain is on the top of the foot. Patient denies any leg pain knee pain or other extremity pain. Patient did not hit her head did not lose consciousness. Patient is not on any blood thinners. Related Data Home Medications ?Medication ?Instructions ?Recorded ?Confirmed tirzepatide (weight loss) 12.5 12.5 mg SQ WEEKLY 11/04/24 06/17/25 mg/0.5 mL subcutaneous pen injector (Zepbound) Previous Rx's ?Medication ?Instructions ?Recorded hydroxyzine pamoate 50 mg capsule 50 mg PO BID PRN anxiety #60 caps 05/14/25 citalopram 40 mg tablet See Rx Instructions .Route 05/27/25 .COMPLEX #30 tabs clonazepam 0.5 mg tablet 0.5 mg PO DAILY PRN severe anxiety 06/14/25 #14 tabs hydrocodone 5 mg-acetaminophen 325 1 tab PO Q8H PRN pain #30 tabs 06/15/25 mg tablet ibuprofen 800 mg tablet 800 mg PO Q8H #90 tabs 06/17/25 Allergies Allergy/AdvReac Type Severity Reaction Status Date / Time No Known Allergies Allergy Verified 06/17/25 10:47 [facility] Disclaimer: The information contained in this section may have been updated after the patient was seen, as this information can be updated by other users. Medical History Depression Anxiety Surgical History History of skin graft Hx of tubal ligation H/O section Hx of tonsillectomy Family History Father Hypertension Hyperlipidemia Diabetes Coronary artery disease Mother Thyroid disorder Hyperlipidemia Hypertension Social History Smoking Status: Never smoker second hand exposure: No alcohol intake: never current occupational status: student and other Travel in the last 8 weeks?: None household members: family housing: house Have you lived/traveled outside US in past 30 days?: No Contact w/someone who lives/traveled outside US past 30 days?: No Exposure to someone with infectious disease in past 14 days?: No Do you have a fever (greater than 100.4 F or 38 C)?: No Have you tested positive for COVID-19?: No Exposed to someone with COVID-19 in past 14 days?: No Do you have a sore throat?: No Do you have a cough?: No Do you have shortness of breath?: No Do you have a headache?: No Do you have any weakness?: No Are you experiencing any nausea/vomitting?: No Do you have any diarrhea?: No Are you experiencing any unusual bleeding?: No Do you have any muscle aches/pain?: No Do you have any abdominal pain?: No Are you experiencing loss of taste or smell?: No Other Medical History Have you received the Pneumonia Vaccine: No ROS Obtained: Yes All systems reviewed & no additional complaints except as documented and Yes Systems reviewed as appropriate & no additional complaints except as documented Physical Exam General General appearance: alert and in no apparent distress Head Head exam: atraumatic, normocephalic and normal inspection Eye Eye exam: Present normal appearance, PERRL and EOMI; Absent scleral icterus ENT ENT exam: Present normal exam and normal external ear exam Neck Neck exam: Present normal inspection and full ROM Chest Chest inspection: Present normal inspection and symmetric chest wall rise Respiratory Respiratory exam: Present normal lung sounds bilaterally; Absent respiratory distress or wheezes Cardiovascular Cardiovascular exam: Present regular rate, normal rhythm and normal heart sounds Abdominal Exam Abdominal exam: Present soft and distention; Absent tenderness, guarding or rebound Extremities Exam Extremities exam: Present normal inspection, full ROM and other (R foot with tenderness on the forefoot, no signfificant swelling or bruising, FROM with pain) Back Exam Back exam: Present normal inspection and full ROM Neurological Exam Neurological exam: Present alert and oriented X3 Psychiatric Psychiatric exam: Present normal affect and normal mood Skin Skin exam: Present warm and dry Medical Decision Making Medical Records Screening: Per USPSTF and CDC recommendations, given the prevalence of disease in our region, it is our hospital?s policy to screen for HIV and viral Hepatitis for all patients aged 18 and over and those with ongoing risk factors. Ronal Inquiry Pt receiving controlled substance: No Vital Signs: 06/13/25 18:56 06/13/25 20:25 06/13/25 20:26 Temperature 98 F 98 F Temperature Source Oral Temporal Artery Scan Pulse Rate 67 Pulse Rate [Right Brachial] 77 Pulse Rate [Right Dorsalis Pedis] 68 Pulse Rate [Right Posterior Tibial] 68 Respiratory Rate 16 16 Blood Pressure 115/65 Blood Pressure [Right Arm] 131/75 Blood Pressure Mean [Right Arm] 93 Blood Pressure Source Blood Pressure Source [Right Arm] Automatic Cuff Blood Pressure Position Sitting Blood Pressure Position [Right Arm] Sitting 02 Sat by Pulse Oximetry 98 97 Oxygen Delivery Method Room Air Room Air 06/13/25 22:05 Temperature 97.9 F Temperature Source Temporal Artery Scan Pulse Rate 88 Pulse Rate [Right Brachial] Pulse Rate [Right Dorsalis Pedis] Pulse Rate [Right Posterior Tibial] Respiratory Rate 16 Blood Pressure 131/74 Blood Pressure [Right Arm] Blood Pressure Mean [Right Arm] Blood Pressure Source Automatic Cuff Blood Pressure Source [Right Arm] Blood Pressure Position Sitting Blood Pressure Position [Right Arm] 02 Sat by Pulse Oximetry Oxygen Delivery Method Room Air Lab Data Lab results reviewed: Yes I reviewed the patient's lab results. Orders (Tests/Meds): ED MEDICATIONS Discontinued Medications Generic Name Dose Route Start Last Admin Trade Name Asa PRN Reason Stop Dose Admin Acetaminophen 1,000 mg 06/13/25 18:58 06/13/25 19:34 Acetaminophen 500mg Tab PO 06/13/25 18:59 1,000 mg ONCE ONE Administration Ibuprofen 800 mg 06/13/25 18:58 06/13/25 19:34 Ibuprofen 400 Mg Tablet PO 06/13/25 18:59 800 mg ONCE ONE Administration Oxycodone HCl 5 mg 06/13/25 18:58 06/13/25 19:34 Oxycodone 5mg Immediate Release Tablet PO 06/13/25 18:59 5 mg ONCE ONE Administration ORDERS Category Date Time Status Ankle XR -Right minimum 3 Views [XR ankle RT min 3V] Exams 06/13/25 18:58 Completed Stat Fibula/tibia XR right 2 views [XR tibia fibula RT 2V] Exams 06/13/25 18:58 Completed Stat Foot XR right minimum 3 views [XR foot RT min 3V] Stat Exams 06/13/25 18:58 Completed Medical Decision Narrative: Patient is an otherwise healthy 40-year-old female who presented to the emergency department after a fall with pain to the right ankle. On arrival, patient was hemodynamically stable with unremarkable vital signs. Differential includes but not limited to: Fracture, dislocation, sprain, strain, amongst others. On exam, patient had tenderness to her forefoot, no significant medial or lateral malleolus tenderness. Patient with no significant swelling or bruising. Patient had full range of motion but with associated pain. Patient has been able to ambulate prior to arrival. X-rays were reviewed and interpreted by myself and per radiology patient had a possible avulsion fracture of the talus/calcaneus. Patient was placed into a walking boot and patient was given orthopedic follow-up. Patient was otherwise discharged home in stable condition. Advised to use Tylenol Motrin as needed for pain control. Critical Care Critical Care Time Critical Care Time: No
[2025-06-13 18:56] VITALS: BP 131/75; PULSE 77; RESP 16; TEMP 36.6; O2SAT 98; BMI 33.7
--- NOTE | 2025-06-13 18:58 | XR_ITS ---
PROCEDURE INFORMATION: Exam: XR Right Foot Exam date and time: 06/13/2025 7:21 PM Age: 40 years old Clinical indication: Injury or trauma; Fall; Other: Pain; Additional info: Tenderness S/P fall TECHNIQUE: Imaging protocol: Radiologic exam of the right foot. Views: 3 or more views. COMPARISON: CR XR ANKLE RT MIN 3V 05/02/2021 4:07 PM FINDINGS: Bones/joints: Probable tiny avulsion fracture along lateral aspect of talus/calcaneus, better visualized on ankle radiographs. No dislocation. Posterior and plantar calcaneal enthesophytes. Soft tissues: Soft tissue swelling about ankle. IMPRESSION: Probable tiny avulsion fracture along lateral aspect of talus/calcaneus.
--- NOTE | 2025-06-13 18:58 | XR_ITS ---
PROCEDURE INFORMATION: Exam: XR Right Tibia and Fibula Exam date and time: 06/13/2025 7:21 PM Age: 40 years old Clinical indication: Injury or trauma; Fall; Other: Pain; Additional info: Tenderness S/P fall TECHNIQUE: Imaging protocol: Radiologic exam of the right tibia and fibula. Views: 2 views. COMPARISON: CR XR ANKLE RT MIN 3V 05/02/2021 4:07 PM FINDINGS: Bones/joints: Probable tiny avulsion fracture along lateral aspect of talus/calcaneus. No dislocation. Posterior and plantar calcaneal enthesophytes. Soft tissues: Soft tissue swelling about ankle. IMPRESSION: Probable tiny avulsion fracture along lateral aspect of talus/calcaneus.
--- NOTE | 2025-06-13 18:58 | XR_ITS ---
PROCEDURE INFORMATION: Exam: XR Right Ankle Exam date and time: 06/13/2025 7:21 PM Age: 40 years old Clinical indication: Injury or trauma; Fall; Other: Pain; Additional info: Tenderness S/P fall TECHNIQUE: Imaging protocol: Radiologic exam of the right ankle. Views: 3 or more views. COMPARISON: CR XR ANKLE RT MIN 3V 05/02/2021 4:07 PM FINDINGS: Bones/joints: Probable tiny avulsion fracture along lateral aspect of talus/calcaneus. No dislocation. Posterior and plantar calcaneal enthesophytes. Small joint effusion. Soft tissues: Soft tissue swelling. IMPRESSION: Probable tiny avulsion fracture along lateral aspect of talus/calcaneus.
--- OUTSIDE RECORDS SUMMARY | 2025-06-13 19:13 | XMS_ITS | Clinical Summary ---
Author Organization [facility] Address [address] [id number] Care Team Providers Care Boil Off Machine Operator Cloth Name Role Phone Unavailable Primary Care Provider Unavailabl e Allergies No known active allergies Medications promethazine (PHENERGAN) 25 mg tabletIndication s:9 weeks gestation of ([facility]),Nausea Take 1 Tab by mouth Every 4 to 6 Hours as needed for Nausea. 30 Tab 05/15/2018 Active prenat.vits,mindi, fqk-ogly-rbeyj ( VITAMIN) TabIndications:9 weeks gestation of ([facility]) Take 1 TAB by mouth Daily. 30 [...] VACCINE (1 - Tdap) 2005 INFLUENZA VACCINE (#1) 2025 HEP A VACCINE Aged Out No longer elig ible based on patient's age to complete this topic HIB VACCINE Aged Out No longer eligi ble based on patient's age to complete this topic ROTOVIRUS VACCINE Aged Out No longer eligible based on patient's age to complete this topic
--- OUTSIDE RECORDS SUMMARY | 2025-06-13 19:13 | XMS_ITS | Clinical Summary ---
Author Organization [facility] Address [address] [place] [address] Care Team Providers Care Pet Nutrition Specialist Name Role Phone Provider, No Known Primary Care Provider Unavail able Allergies No known active allergies Medications ibuprofen (ADVIL,MOTRIN) 600 MG tablet Take 1 tablet by mouth Every 6 (Six) Hours As Needed for Mild Pain . 90 tablet 12/15/2018 12:56 PM EDT 12/15/2018 Active Vit-Fe Fumarate-FA ( VITAMIN 27-0.8) 27-0.8 MG tablet tablet Take 1 tablet by mouth Daily. 90 tablet 1 09/10/2019 4:10 PM EST 12/16/2018 Active Active Problems Problem Noted Date Diagnosed Date delivery delivered 12/15/2018 Term 12/12/2018 12/11/2018 Social History Tobacco Use Types Packs/Day Years Used Date Smoking Tobacco: Every Day Cigarettes Comments:.5 ppd prior to pre gnancy Alcohol Use Standard Drinks/Week Comments No 0 (1 standard drink = 0.6 oz pur e alcohol) AUDIT-C Answer Date Recorded Frequency of Alcohol Consumption Never 12/11/2018 Average Number of Drinks Not on file 019 Frequency of Binge Drinking Not on file 11/22 [place] Depression Scale Answer Date Recorded Retired [place] Depression Score 0 12/12/2018 Retired EPD Scale: Thought of Harming Self Unrec ognized value 12/12/2018 Abuse Screen Answer Date Recorded Unsafe at Home or Work/School Not on file Feels Threatened by Someone? Not on file 08/2023 Does Anyone Keep You from Co ntacting Others or Doint Things Outside the Home? Not on file 07/04/2023 Physical Sign of Abuse Present Not on file 1 Housing Stability Answer Date Recorded Current Living Arrangements Not on file 10/1 10/2022 Potentially Unsafe Housing Conditions Not on jose carlos e 07/04/2023 Family and Community Support Answer Herminio e Recorded Help with Day-to-Day Activities Not on file 07/04/2023 Lonely or Isolated Not on file 07/04/2023 Employment Answer Date Recorded Do you want help finding or keeping work or a sarah b? Not on file 07/04/2023 Disabilities Answer Date Recorded Concentrating, Remembering, or Making Decisions Difficulty Not on file 07/04/2023 Doing Errands Independently Difficulty Not on fi le 07/04/2023 Education Answer Date Recorded Help with school or training? Not on file Preferred Language Not on file 07/04/2023 Comments No Sex and Gender Information Value Date Recorded Sex Assigned at Not on file Legal Sex Female 12:25 PM EDT Gender Identity Not on file Sexual Orientation Not on file Last Filed Vital Signs Vital Sign Reading Time Taken Comments Blood Pressure 124/64 12/15/2018 7:00 AM EDT Pulse 63 12/15/2018 7:00 AM EDT Temperature 36.6 C (97.8 F) 12/15/2018 7:00 AM EDT Respiratory Rate 16 12/15/2018 7:00 AM EDT Oxygen Saturation 98% 12/12/2018 2:00 AM EDT Inhaled Oxygen Concentration - - Weight 106 kg (233 lb) 12/11/2018 6:37 PM EDT Height 165.1 cm (5' 5 ) 12/11/2018 6:37 PM EDT Body Mass Index 38.77 12/11/2018 6:37 PM EDT Plan of Treatment Health Maintenance Due Date Last Done Comments Annual Gynecologic Pelvic an d Breast Exam 1986 TDAP/TD VACCINES (1 - Tdap) 2005 ANNUAL PHYSICAL 12/09/2018 HEPATITIS C SCREENING 12/09/2018 INFLUENZA VACCINE 04/23/2025 Pneumococcal Vaccine 0-49 Aged Out No longer eligible based on patient's age to complete this topic Insurance [facility] Advance Directives * CPR (Attempt to Resuscitate) (Latest Code Status on File) Date Activated Date Inactivated Comments 12/12/2018 2:30 AM 12/15/2018 2:57 PM Question Answer Comments Code Status (Patient has no pulse and is not breathing): CPR (Attempt to Resuscitate) Medical Interventions (Patie nt has pulse or is breathing): Full * CPR (Attempt to Resuscitate) Date Activated Date Inactivated Comments 12/12/2018 1:42 AM 12/12/2018 2:30 AM Question Answer Comments Code Status (Patient has no pulse and is not breathing): CPR (Attempt to Resuscitate) Medical Interventions (Patie nt has pulse or is breathing): Full Care Teams Pet Nutrition Specialist Relationship Specialty Start Date End Date Provider, [place] [address] PCP - General 12/02/18
--- OUTSIDE RECORDS SUMMARY | 2025-06-13 19:13 | XMS_ITS | Clinical Summary ---
Author Organization Healthcare Address [address] [place] [address] Care Team Providers Care Slitting And Shipping Supervisor Name Role Phone Jessy Ferguson APRN Primary [...] of Treatment Not on file Care Teams Slitting And Shipping Supervisor Relationship Specialty Start Date End Date Jessy Ferguson APRN [address] [place] [address] PCP - General 02/03/21
--- OUTSIDE RECORDS SUMMARY | 2025-06-13 19:13 | XMS_ITS | Patient Health Record ---
Author Organization [facility] Address [address] [facility] [address] [place] [address] Care Team Providers Care Double Bottom Driver Name Role Phone China Cornelius Unavailable [phone] Reason For Referral No Information Problems Problem Type SNOMED Code ICD Code Onset Dates Problem Status W/U Status Risk Notes Problem Third trimester (14068250) Supervision of other normal , third trimester (Z34.83) 11/05/19 19 Active confirmed Supervision of other normal , third trimester Problem Second trimester (12993249) Supervision of other normal , second trimester (Z34.82) 07/28/20 18 Active confirmed Supervision of other normal , second trimester Problem First trimester (65955444) Supervision of other normal , first trimester (Z34.81) 06/03/20 18 Active confirmed Encounter for supervision of other normal , first trimester Problem Gestation period, 36 weeks (57079323) 36 weeks gestation of (Z3A.36) 11/27/19 19 Active confirmed 36 weeks gestation of Problem Gestation period, 11 weeks (01630070) 11 weeks gestation of (Z3A.11) 06/03/20 18 Active confirmed 11 weeks gestation of Problem Gestation period, 25 weeks (75649518) 25 weeks gestation of (Z3A.25) 09/10/20 18 Active confirmed 25 weeks gestation of Problem Gestation period, 37 weeks (77096640) 37 weeks gestation of (Z3A.37) 12/04/19 19 Active confirmed 37 weeks gestation of Problem Gestation period, 38 weeks (54158955) 38 weeks gestation of (Z3A.38) 12/11/19 19 Active confirmed 38 weeks gestation of Problem Pelvic and perineal pain (768989340) Abdominal pain, suprapubic (R10.2) 08/05/20 18 Active confirmed Abdominal pain, pelvic and perineal Plan Of Treatment No Information Medical (General) History Medical History History ICD Code Acid reflux Anxiety Depression and UTI. Surgical History Surgery Date(Month/Year) C/S 2007, C/S 2010, and Left arm skin gr aft.
--- OUTSIDE RECORDS SUMMARY | 2025-06-13 19:13 | XMS_ITS | Encounter Summary ---
Author Organization [facility] Address [address] [place] [address] Care Team Providers Care Goring Cutter Name Role Phone Jessy Ferguson APRN Primary Care Provider [phone] Encounter Details Date Type Department Care Team (Late st Contact Info) Description 03/05/2018 Orders Only [facility] [address] [place] [address] Jessy Ferguson APRN [address] [place] [address] Morbid obesity due to excess calories (Primary [...] Primary documented in this encounter Care Teams Goring Cutter Relationship Specialty Start Date End Date Jessy Ferguson APRN [address] [place] [address] PCP - General Family Practice 10/21/17 11/08/22 documented as of this encounter
--- NOTE | 2025-06-13 19:26 | PC.NURSE ---
pt in radiology, will medicate when she returns
[2025-06-13] MEDS: OXYCODONE 5MG IMMEDIATE RELEASE TABLET 5 MG PO (19:34)
[2025-06-13] MEDS: IBUPROFEN 400 MG TABLET 800 MG PO (19:34)
[2025-06-13] MEDS: ACETAMINOPHEN 500MG TAB 1000 MG PO (19:34)
--- NOTE | 2025-06-13 19:36 | PC.NURSE ---
Ice pack applied to pt right ankle, medication given
[2025-06-13 20:25] VITALS: BP 115/65; PULSE 67; RESP 16; TEMP 36.6; O2SAT 97
[2025-06-13 20:26] VITALS: PULSE 68
[2025-06-13 22:05] VITALS: BP 131/74; PULSE 88; RESP 16; TEMP 36.6; O2SAT 99
== END 2025-06-13 22:07 | disposition home or self-care (01) ==
PROVIDERS: Emergency Provider Student in an Organized Health Care Education/Training Program; PCP Nurse Practitioner Family
DX: S92.001A Unspecified fracture of right calcaneus, initial encounter for closed fracture (principal); M25.571 Pain in right ankle and joints of right foot; W01.10XA Fall on same level from slipping, tripping and stumbling with subsequent striking against unspecified object, initial encounter
CPT/HCPCS: 73590; 73610; 73630; 99283

== ENCOUNTER 2025-06-28 08:54 | Outpatient (CLI) | payer OTHER, SELFPAY ==
--- NOTE | 2025-06-28 09:00 | MR_ITS ---
FINAL REPORT TECHNIQUE: Multiplanar MR imaging was performed through the right foot. CLINICAL HISTORY: medial right foot pain after twisting ankle swelling and bruising to top of foot COMPARISON: Right foot x-ray dated 06/13/2025. FINDINGS: Bone marrow signal intensity is preserved without acute bone marrow edema, fracture or pathologic marrow replacement. The tiny calcification adjacent to the medial and talus on plain films is not visualized on MRI. The joint spaces are preserved. The Lisfranc joint is intact. The Lisfranc ligament is intact. The flexor and extensor tendons to the toes are intact. There is a partial insertional tear of the Achilles tendon involving the anterior fibers. There is no complete Achilles rupture. The flexor and extensor tendons to the toes appear intact. There is nonspecific soft tissue edema along the dorsum of the foot. The plantar fascia is unremarkable. The remaining soft tissues are without acute abnormality. IMPRESSION: Partial-thickness tear of the anterior Achilles tendon at its insertion. Nonspecific soft tissue edema along the dorsum of the foot. Reviewed, Interpreted and Dictated by Kae Musa MD Transcribed by Harriet Vanegas Authenticated and [facility]
--- OUTSIDE RECORDS SUMMARY | 2025-06-28 09:01 | XMS_ITS | Patient Health Record ---
Author Organization [facility] Address [address] [facility] [address] [place] [address] Care Team Providers Care Mangle Catcher Name Role Phone China Cornelius Unavailable [phone] Reason For Referral No Information Problems Problem Type SNOMED Code ICD Code Onset Dates Problem Status W/U Status Risk Notes Problem Third trimester (46094102) Supervision of other normal , third trimester (Z34.83) 11/05/19 19 Active confirmed Supervision of other normal , third trimester Problem Second trimester (58104779) Supervision of other normal , second trimester (Z34.82) 07/28/20 18 Active confirmed Supervision of other normal , second trimester Problem First trimester (12193898) Supervision of other normal , first trimester (Z34.81) 06/03/20 18 Active confirmed Encounter for supervision of other normal , first trimester Problem Gestation period, 36 weeks (32976711) 36 weeks gestation of (Z3A.36) 11/27/19 19 Active confirmed 36 weeks gestation of Problem Gestation period, 11 weeks (86414641) 11 weeks gestation of (Z3A.11) 06/03/20 18 Active confirmed 11 weeks gestation of Problem Gestation period, 25 weeks (12906295) 25 weeks gestation of (Z3A.25) 09/10/20 18 Active confirmed 25 weeks gestation of Problem Gestation period, 37 weeks (01021663) 37 weeks gestation of (Z3A.37) 12/04/19 19 Active confirmed 37 weeks gestation of Problem Gestation period, 38 weeks (21856030) 38 weeks gestation of (Z3A.38) 12/11/19 19 Active confirmed 38 weeks gestation of Problem Pelvic and perineal pain (669978235) Abdominal pain, suprapubic (R10.2) 08/05/20 18 Active confirmed Abdominal pain, pelvic and perineal Plan Of Treatment No Information Medical (General) History Medical History History ICD Code Acid reflux Anxiety Depression and UTI. Surgical History Surgery Date(Month/Year) C/S 2007, C/S 2010, and Left arm skin gr aft.
--- OUTSIDE RECORDS SUMMARY | 2025-06-28 09:01 | XMS_ITS | Clinical Summary ---
Author Organization [facility] Address [address] [id number] Care Team Providers Care Web Site Manager Name Role Phone Unavailable Primary Care Provider Unavailabl e Allergies No known active allergies Medications promethazine (PHENERGAN) 25 mg tabletIndication s:9 weeks gestation of ([facility]),Nausea Take 1 Tab by mouth Every 4 to 6 Hours as needed for Nausea. 30 Tab 05/15/2018 Active prenat.vits,mindi, [id number] ( VITAMIN) TabIndications:9 weeks gestation of ([facility]) Take 1 TAB by mouth [...]
--- OUTSIDE RECORDS SUMMARY | 2025-06-28 09:01 | XMS_ITS | Clinical Summary ---
[facility] Organization [facility] Address [address] [place] [address] Care Team Providers Care Skin Care Therapist Name Role Phone Provider, No Known Primary [...] of Binge Drinking Not on file 11/22 [place] Depression Scale Answer Date Recorded Retired [place] Depression Score 0 12/12/2018 Retired EPD Scale: [...] patient's age to complete this topic Insurance [facility] Advance Directives * CPR (Attempt to Resuscitate) [...] pulse or is breathing): Full Care Teams Skin Care Therapist Relationship Specialty Start Date End Date Provider, [place] [address] PCP - General 12/02/18
--- OUTSIDE RECORDS SUMMARY | 2025-06-28 09:01 | XMS_ITS | Clinical Summary ---
Author Organization [facility] Address [address] [id number] Care Team Providers Care Clinical Informatics Spec Name Role Phone Jessy Ferguson APRN Primary [...] of Treatment Not on file Care Teams Clinical Informatics Spec Relationship Specialty Start Date End Date Jessy Ferguson APRN [address] [place] [address] PCP - General 02/03/21
--- OUTSIDE RECORDS SUMMARY | 2025-06-28 09:01 | XMS_ITS | Encounter Summary ---
Author Organization [facility] Address [address] [place] [address] Care Team Providers Care Loss Prevention Supervisor Name Role Phone Jessy Ferguson APRN Primary Care Provider [phone] Encounter Details Date Type Department Care Team (Late st Contact Info) Description 03/05/2018 Orders Only [facility] [address] [place] [address] Jessy Ferguson APRN [address] [place] [address] Morbid obesity due to excess calories (Primary [...] Primary documented in this encounter Care Teams Loss Prevention Supervisor Relationship Specialty Start Date End Date Jessy Ferguson APRN [address] [place] [address] PCP - General Family Practice 10/21/17 11/08/22 documented as of this encounter
== END 2025-06-28 23:59 | disposition home or self-care (01) ==
LOC: RAD 08:55
PROVIDERS: PCP Nurse Practitioner Family; Visit Provider Physician Assistant
DX: S86.011A Strain of right Achilles tendon, initial encounter (principal); M79.89 Other specified soft tissue disorders; S92.009A Unspecified fracture of unspecified calcaneus, initial encounter for closed fracture
CPT/HCPCS: 73718

== ENCOUNTER 2025-08-23 11:07 | Outpatient (CLI) | payer MEDICAID, SELFPAY ==
[2025-08-23 16:59] LABS: Hematocrit 40.5 % (37.0-47.0); Hemoglobin 13.4 g/dL (12.2-16.2); Immature Granulocytes % 0.6 %; Mean Corpuscular HGB Conc 33.1 g/dL (31.8-35.4); Mean Corpuscular Hemoglobin 29.9 pg (27.0-31.2); Mean Corpuscular Volume 90.4 fl (81-99); Nucleated Red Blood Cells % 0 %; Platelet Count 336 K/mm3 (142-424); Red Blood Count 4.48 M/mm3 (4.20-5.40); Red Cell Distribution Width-SD 41.5 fL; White Blood Count 6.3 K/mm3 (4.8-10.8)
[2025-08-23 17:57] LABS: Alanine Aminotransferase 15 U/L (12-78); Albumin Level 4.2 g/dl (3.5-5.0); Albumin/Globulin Ratio 1.4 (1.1-1.8); Alkaline Phosphatase 73 U/L (38-126); Anion Gap 10.2 mEq/L (5-15); Aspartate Amino Transferase 21 U/L (14-36); Bilirubin,Total 0.5 mg/dl (0.2-1.3); Blood Urea Nitrogen 8 mg/dl (7-17); Calcium 8.9 mg/dl (8.4-10.2); Carbon Dioxide 25 mmol/L (22.0-30.0); Chloride 104 mmol/L (98-107); Creatinine,Serum 0.70 mg/dl (0.52-1.04); Estimated Glomerular Filt Rate 93 ml/min (>60); GFR (African American) 113 ML/MIN (>60); Globulin 2.9 g/dL (1.3-3.2); Glucose 62 mg/dl (74-100); Potassium 4.2 mmoL/L (3.5-5.1); Sodium 135 mmol/L (136-145); Total Protein,Serum 7.1 g/dl (6.3-8.2)
[2025-08-23 18:29] LABS: Thyroid Stimulating Hormone 2.43 uIU/mL (0.465-4.68)
[2025-08-23 19:24] LABS: Hepatitis C Ab Qual. W/ RFX NEGATIVE (Negative)
[2025-08-24 04:08] LABS: Hepatitis B Surface Antigen Negative (Negative)
--- OUTSIDE RECORDS SUMMARY | 2025-08-24 14:13 | XMS_ITS | Clinical Summary ---
Author Organization [facility] Address [address] [place] [address] Care Team Providers Care Press Tender Star Signal Name Role Phone Jessy Ferguson APRN Primary [...] of Treatment Not on file Care Teams Press Tender Star Signal Relationship Specialty Start Date End Date Jesys Ferguson APRN [address] [place] [address] PCP - General 02/03/21
--- OUTSIDE RECORDS SUMMARY | 2025-08-24 14:13 | XMS_ITS | Clinical Summary ---
Author Organization [facility] Address [address] [id number] Care Team Providers Care School Administrator Name Role Phone Unavailable Primary Care Provider Unavailabl e Allergies No known active allergies Medications promethazine (PHENERGAN) 25 mg tabletIndication s:9 weeks gestation of ([facility]),Nausea Take 1 Tab by mouth Every 4 to 6 Hours as needed for Nausea. 30 Tab 05/15/2018 Active prenat.vits,mindi, [id number]-[id number] ( VITAMIN) TabIndications:9 weeks gestation of ([facility]) Take 1 TAB by mouth Daily. 30 [...]
--- OUTSIDE RECORDS SUMMARY | 2025-08-24 14:13 | XMS_ITS | Encounter Summary ---
Author Organization [facility] Address [address] [place] [address] Care Team Providers Care Dietetic Technician Registered Name Role Phone Jessy Ferguson APRN Primary Care Provider [phone] Encounter Details Date Type Department Care Team (Late st Contact Info) Description 03/05/2018 Orders Only [facility] [address] [place] [address] Jessy Ferguson APRN [address] [place] [address] Morbid obesity due to excess calories (Primary [...] Primary documented in this encounter Care Teams Dietetic Technician Registered Relationship Specialty Start Date End Date Jessy Ferguson APRN [address] [place] [address] PCP - General Family Practice 10/21/17 11/08/22 documented as of this encounter
--- OUTSIDE RECORDS SUMMARY | 2025-08-24 14:13 | XMS_ITS | Data Portability ---
Author Organization Formerly [facility], [facility] Address [address] [place] [address] Assessment No assessment recorded. Plan of Treatment Reminders Order Date Submit Date Provider Last Modified By Organization Details Last Modified Time Details Appointments None recorded. Lab drug screen, urine 2023 024 [facility], [address] [facility], [place], [address], 4 17:38:14 testosteron e, free + total, serum 2022 023 PAULINE [facility], [address], [address], [place], [address], 3 11:08:33 lh + FSH, serum 2022 023 PAULINE [facility], [address], [place] [address], [place], [address], 3 11:08:32 estradiol, serum 2022 023 PAULINE [facility], [address], [place], [place], [address], 3 11:08:35 magnesium, serum or plasma 2022 023 PAULINE [facility], [address], [place], [place], [address], 3 11:08:36 prolactin, serum 2022 023 PAULINE [facility], [address], [place] [address], [place], [address], 3 11:08:34 drug screen, 14 drugs (detectimed ), urine 2022 023 PAULINE [facility], [address], [place] [address], [place], [address], 3 11:08:32 HbA1c (hemoglobin A1c), blood 2022 023 [facility]ULINE [facility], [address], [place] [address], [place], [address], 3 12:07:47 lipid panel, serum 2022 023 [facility]ULINE [facility], [address], [place] [address], [place], [address], 3 12:07:47 CMP, serum or plasma 2022 023 [facility]INE [facility], [address], [place] [address], [place], [address], 3 12:07:46 CBC w/ auto diff 2022 023 [facility]UL[facility], [address], [place] [address], [place], [address], 3 12:07:46 insulin, serum 2022 023 [facility]UL[facility], [address], [place] [address], [place], [address], 3 12:07:48 TSH + free T4, serum 2022 023 [facility]ULINE [facility], [address], [place] [address], [place], [address], 3 12:07:45 Referral None recorded. Procedures None recorded. Surgeries None recorded. Imaging None recorded. Medication Orders phentermine 37.5 mg tablet 2023 024 PAULINE [facility], [address] , [place], [address], 4 17:41:20 Adipex-P 37.5 mg tablet [address] [facility], [address] [place] [address], [id number], 4 16:25:36 Wegovy 0.25 mg/0.5 mL subcutaneou s pen injector 2022 023 [facility], [address] [place] [address], [id number], 3 15:22:18 Adipex-P 37.5 mg tablet [address] [facility], [address] [place] [address], [id number], 4 16:25:36 Patient TargetsNo targets recorded. Patient Instructions Encounter Date Encounter Id Patient Instructions Last Modified By Organization Details Last Modified Time 12/11/2022 [id number] body mass index: care instructions efryman Not available 12/11/2022 13:40:59 learning about healthy weight efryman Not available 12/11/2022 13:40:59 learning about low-carbohydrate diets efryman Not available 12/11/2022 13:40:59 learning about low-carbohydrate foods efryman Not available 12/11/2022 13:41:00 learning about high cholesterol efryman Not available 12/11/2022 13:40:59 02/01/2023 [id number] learning about healthy weight efryman Not available 02/01/2023 15:50:05 body mass index: care instructions efryman Not available 02/01/2023 15:50:05 10/22/2023 [id number] body mass index: care instructions efryman Not available 10/22/2023 17:24:18 learning about healthy weight efryman Not available 10/22/2023 17:24:18 Reason for Referral None Reported. Results Created Date Observation Date Name Description Value Unit Range Abnormal Flag Note LastModifiedBy Organization Detail LastModifiedTime 12/09/1912/08/2022 TSH+F REE T4 TSH 4.170 uIU/m L 0.450- 4.500 Not Available [facility] ([facility]) [address] [place], [address], 12/08/2022 12:07:45 12/09/1912/08/2022 TSH+F REE T4 T4,free(dire ct) 1.16 NG/dL 0.82-1 .77 Not Available [facility] ([facility]) [address] [place], [address], 12/08/2022 12:07:45 12/09/19 23 12/08/2022 CBC WITH DIFFE RENTI AL/PL ATELE T WBC 8.2 x10e3 /uL 3.4-10 .8 Not Available [facility] ([facility]) [address] [place], [address], 12/08/2022 12:07:46 12/09/19 23 12/08/2022 CBC WITH DIFFE RENTI AL/PL ATELE T RBC 4.76 x10e6 /uL 3.77-5 .28 Not Available [facility] ([facility]) [address] [place], [address], 12/08/2022 12:07:46 12/09/19 23 12/08/2022 CBC WITH DIFFE RENTI AL/PL ATELE T hemoglobin 14.4 g/dL 11.1-1 5.9 Not Available [facility] ([facility]) [address] [place], [address], 12/08/2022 12:07:46 12/09/19 23 12/08/2022 CBC WITH DIFFE RENTI AL/PL ATELE T hematocrit 42.2 % 34.0-4 6.6 Not Available [facility] ([facility]) [address] [facility], [place], [address], 12/08/2022 12:07:46 12/09/19 23 12/08/2022 CBC WITH DIFFE RENTI AL/PL ATELE T MCV 89 fL 79-97 Not Available [facility] ([facility]) [address] [facility], [place], [address], 12/08/2022 12:07:46 12/09/19 23 12/08/2022 CBC WITH DIFFE RENTI AL/PL ATELE T MCH 30.3 pg 26.6-3 3.0 Not Available [facility] ([facility]) [address] [facility], [place], [address], 12/08/2022 12:07:46 12/09/19 23 12/08/2022 CBC WITH DIFFE RENTI AL/PL ATELE T MCHC 34.1 g/dL 31.5-3 5.7 Not Available [facility] ([facility]) [address] [facility], [place], [address], 12/08/2022 12:07:46 12/09/19 23 12/08/2022 CBC WITH DIFFE RENTI AL/PL ATELE T RDW 12.6 % 11.7-1 5.4 Not Available [facility] ([facility]) [address] [facility], [place], [address], 12/08/2022 12:07:46 12/09/19 23 12/08/2022 CBC WITH DIFFE RENTI AL/PL ATELE T platelets 313 x10e3 /uL 150-45 0 Not Available [facility] ([facility]) [address] [place], [address], 12/08/2022 12:07:46 12/09/19 23 12/08/2022 CBC WITH DIFFE RENTI AL/PL ATELE T neutrophils 60 % not estab. Not Available [facility] ([facility]) [address] [facility], [place], [address], 12/08/2022 12:07:46 12/09/19 23 12/08/2022 CBC WITH DIFFE RENTI AL/PL ATELE T lymphs 30 % not estab. Not Available [facility] ([facility]) [address] [facility], [place], [address], 12/08/2022 12:07:46 12/09/19 23 12/08/2022 CBC WITH DIFFE RENTI AL/PL ATELE T monocytes 6 % not estab. Not Available [facility] ([facility]) [address] [facility], [place], [address], 12/08/2022 12:07:46 12/09/19 23 12/08/2022 CBC WITH DIFFE RENTI AL/PL ATELE T eos 2 % not estab. Not Available [facility] ([facility]) [address] [facility], [place], [address], 12/08/2022 12:07:46 12/09/19 23 12/08/2022 CBC WITH DIFFE RENTI AL/PL ATELE T basos 1 % not estab. Not Available [facility] ([facility]) [address] [facility], [place], [address], 12/08/2022 12:07:46 12/09/19 23 12/08/2022 CBC WITH DIFFE RENTI AL/PL ATELE T immature cells PIPELINE CONSTRUCTION INSPECTOR Not Available [facility] ([facility]) [address] [facility], [place], [address], 12/08/2022 12:07:46 12/09/19 23 12/08/2022 CBC WITH DIFFE RENTI AL/PL ATELE T neutrophils (absolute) 5.0 x10e3 /uL 1.4-7. 0 Not Available [facility] ([facility]) [address] [place], [address], 12/08/2022 12:07:46 12/09/19 23 12/08/2022 CBC WITH DIFFE RENTI AL/PL ATELE T lymphs (absolute) 2.5 x10e3 /uL 0.7-3. 1 Not Available [facility] ([facility]) [address] [place], [address], 12/08/2022 12:07:46 12/09/19 23 12/08/2022 CBC WITH DIFFE RENTI AL/PL ATELE T monocytes(ab solute) 0.5 x10e3 /uL 0.1-0. 9 Not Available [facility] ([facility]) [address] [place], [address], 12/08/2022 12:07:46 12/09/19 23 12/08/2022 CBC WITH DIFFE RENTI AL/PL ATELE T eos (absolute) 0.2 x10e3 /uL 0.0-0. 4 Not Available [facility] ([facility]) [address] [place], [address], 12/08/2022 12:07:46 12/09/19 23 12/08/2022 CBC WITH DIFFE RENTI AL/PL ATELE T baso (absolute) 0.1 x10e3 /uL 0.0-0. 2 Not Available [facility] ([facility]) [address] [place], [address], 12/08/2022 12:07:46 12/09/19 23 12/08/2022 CBC WITH DIFFE RENTI AL/PL ATELE T immature granulocytes 1 % not estab. Not Available [facility] ([facility]) [address] [place], [address], 12/08/2022 12:07:46 12/09/19 23 12/08/2022 CBC WITH DIFFE RENTI AL/PL ATELE T immature grans (abs) 0.1 x10e3 /uL 0.0-0. 1 Not Available [facility] ([facility]) [address] [place], [address], 12/08/2022 12:07:46 12/09/19 23 12/08/2022 CBC WITH DIFFE RENTI AL/PL ATELE T NRBC PIPELINE CONSTRUCTION INSPECTOR Not Available [facility] ([facility]) [address], [place], [address], 12/08/2022 12:07:46 12/09/19 23 12/08/2022 CBC WITH DIFFE RENTI AL/PL ATELE T hematology comments: PIPELINE CONSTRUCTION INSPECTOR Not Available [facility] ([facility]) [address], [place], [address], 12/08/2022 12:07:46 12/09/19 23 12/08/2022 COMP. METAB OLIC PANEL (14) glucose 91 mg/dL 70-99 Not Available [facility] ([facility]) [address] [facility], [place], [address], 12/08/2022 12:07:46 12/09/19 23 12/08/2022 COMP. METAB OLIC PANEL (14) BUN 7 mg/dL 6-20 Not Available [facility] ([facility]) [address] [facility], [place], [address], 12/08/2022 12:07:46 12/09/19 23 12/08/2022 COMP. METAB OLIC PANEL (14) creatinine 0.66 mg/dL 0.57-1 .00 Not Available [facility] ([facility]) [address] [facility], [place], [address], 12/08/2022 12:07:46 12/09/19 23 12/08/2022 COMP. METAB OLIC PANEL (14) eGFR 117 mL/mi n/1.7 3 >59 Not Available [facility] ([facility]) [address] [facility], [place], [address], 12/08/2022 12:07:46 12/09/19 23 12/08/2022 COMP. METAB OLIC PANEL (14) BUN/creatini ne ratio 11 9-23 Not Available [facility] ([facility]) [address] [facility] [place], [address], 12/08/2022 12:07:46 12/09/19 23 12/08/2022 COMP. METAB OLIC PANEL (14) sodium 139 mmol/ L 134-14 4 Not Available [facility] ([facility]) [address] [facility] [place], [address], 12/08/2022 12:07:46 12/09/19 23 12/08/2022 COMP. METAB OLIC PANEL (14) potassium 4.3 mmol/ L 3.5-5. 2 Not Available [facility] ([facility]) [address] [facility], [place], [address], 12/08/2022 12:07:46 12/09/19 23 12/08/2022 COMP. METAB OLIC PANEL (14) chloride 103 mmol/ L 96-106 Not Available [facility] ([facility]) [address] [facility] [place], [address], 12/08/2022 12:07:46 12/09/19 23 12/08/2022 COMP. METAB OLIC PANEL (14) carbon dioxide, total 21 mmol/ L 20-29 Not Available [facility] ([facility]) [address] [facility] [place], [address], 12/08/2022 12:07:46 12/09/19 23 12/08/2022 COMP. METAB OLIC PANEL (14) calcium 9.1 mg/dL 8.7-10 .2 Not Available [facility] ([facility]) [address] [facility] [place], [address], 12/08/2022 12:07:46 12/09/19 23 12/08/2022 COMP. METAB OLIC PANEL (14) protein, total 7.2 g/dL 6.0-8. 5 Not Available [facility] ([facility]) [address] [place], [address], 12/08/2022 12:07:46 12/09/19 23 12/08/2022 COMP. METAB OLIC PANEL (14) albumin 4.4 g/dL 3.8-4. 8 Not Available [facility] ([facility]) [address] [place], [address], 12/08/2022 12:07:46 12/09/19 23 12/08/2022 COMP. METAB OLIC PANEL (14) globulin, total 2.8 g/dL 1.5-4. 5 Not Available [facility] ([facility]) [address] [place], [address], 12/08/2022 12:07:46 12/09/19 23 12/08/2022 COMP. METAB OLIC PANEL (14) A/G ratio 1.6 1.2-2. 2 Not Available [facility] ([facility]) [address] [place], [address], 12/08/2022 12:07:46 12/09/19 23 12/08/2022 COMP. METAB OLIC PANEL (14) bilirubin, total 0.2 mg/dL 0.0-1. 2 Not Available [facility] ([facility]) [address] [place], [address], 12/08/2022 12:07:46 12/09/19 23 12/08/2022 COMP. METAB OLIC PANEL (14) alkaline phosphatase 99 IU/L 44-121 Not Available [facility] ([facility]) [address] [place], [address], 12/08/2022 12:07:46 12/09/19 23 12/08/2022 COMP. METAB OLIC PANEL (14) AST (SGOT) 22 IU/L 0-40 Not Available [facility] ([facility]) [address] [place], [address], 12/08/2022 12:07:46 12/09/19 23 12/08/2022 COMP. METAB OLIC PANEL (14) ALT (SGPT) 31 IU/L 0-32 Not Available [facility] ([facility]) [address] [facility] [place], [address], 12/08/2022 12:07:46 12/09/19 23 12/08/2022 LIPID PANEL cholesterol, total 239 mg/dL 100-19 9 above high normal Not Available [facility] ([facility]) [address] [place], [address], 12/08/2022 12:07:47 12/09/19 23 12/08/2022 LIPID PANEL triglyceride s 106 mg/dL 0-149 Not Available [facility] ([facility]) [address] [place], [address], 12/08/2022 12:07:47 12/09/19 23 12/08/2022 LIPID PANEL HDL cholesterol 44 mg/dL >39 Not Available [facility] ([facility]) [address] [place], [address], 12/08/2022 12:07:47 12/09/19 23 12/08/2022 LIPID PANEL VLDL cholesterol mindi 19 mg/dL 5-40 Not Available [facility] ([facility]) [address] [place], [address], 12/08/2022 12:07:47 12/09/19 23 12/08/2022 LIPID PANEL LDL chol calc ([email or web address] 176 mg/dL 0-99 above high normal Not Available [facility] ([facility]) [address] [place], [address], 12/08/2022 12:07:47 12/09/19 23 12/08/2022 LIPID PANEL comment: PIPELINE CONSTRUCTION INSPECTOR Not Available [facility] ([facility]) [address] [place], [address], 12/08/2022 12:07:47 12/09/1912/08/2022 HEMOG LOBIN A1C hemoglobin A1C 5.4 % 4.8-5. 6 Predi abete s: 5.7 - 6.4 Diabe tez: >6.4 Glyce lance contr ol for adult s with diabe tez: <7.0 Not Available [facility] ([facility]) [address] [facility], [place], [address], 12/08/2022 12:07:47 12/09/19 23 12/08/2022 INSUL IN insulin 17.0 uIU/m L 2.6-24 .9 Not Available [facility] ([facility]) [address] [facility], [place], [address], 12/08/2022 12:07:48 12/09/1912/08/2022 PLEHILARY E NOTE please note Commen t The date and/o r time of colle ction was not indic ated on the requi sitio n as requi red by state and [place] law. The date of recei pt of the speci men was used as the colle ction date if not suppl ied. Not Available [facility] ([facility]) [address] [facility], [place], [address], 12/08/2022 12:07:48 12/12/1912/17/2022 COMPL IANCE DRUG MALA SIS, UR summary report (summary) FINAL ===== ===== ===== ===== ===== ===== ===== ===== ===== ===== ===== ===== ===== === TOXAS SURE COMP DRUG MALA SIS,U R ===== ===== ===== ===== ===== ===== ===== ===== ===== ===== ===== ===== ===== === Test Resul t Flag Units NO DRUGS DETEC EVE. ===== ===== ===== ===== ===== ===== ===== ===== ===== ===== ===== ===== ===== === Test Resul t Flag Units Ref Range Creat inine 51 mg/dL >=20 ===== ===== ===== ===== ===== ===== ===== ===== ===== ===== ===== ===== ===== === Decla red Medic ation s: Medic ation list was not provi ded. ===== ===== ===== ===== ===== ===== ===== ===== ===== ===== ===== ===== ===== === For clini mindi consu ltati on, pleas e call [phone]. ===== ===== ===== ===== ===== ===== ===== ===== ===== ===== ===== ===== ===== === Not Available [facility] ([facility]) [address] [place], [address], 12/17/2022 11:08:32 12/12/19 23 12/17/2022 COMPL IANCE DRUG MALA SIS, UR pdf . Not Available [facility] ([facility]) [address] [facility], [place], [address], 12/17/2022 11:08:32 12/12/19 23 12/12/2022 FSH AND LH LH 14.4 mIU/m L Adult Femal e: Folli cular phase 2.4 - 12.6 Ovula tion phase 14.0 - 95.6 Lutea l phase 1.0 - 11.4 Postm enopa usal 7.7 - 58.5 Not Available [facility] ([facility]) [address] [place], [address], 12/17/2022 11:08:32 12/12/19 23 12/12/2022 FSH AND LH FSH 6.5 mIU/m L Adult Femal e: Folli cular phase 3.5 - 12.5 Ovula tion phase 4.7 - 21.5 Lutea l phase 1.7 - 7.7 Postm enopa usal 25.8 - 134.8 Not Available [facility] ([facility]) [address] [place], [address], 12/17/2022 11:08:32 12/12/19 23 12/12/2022 TESTO STERO NE,FR EE AND TOTAL testosterone 35 NG/dL 8-60 Not Available [facility] ([facility]) [address] [place], [address], 12/17/2022 11:08:33 12/12/19 23 12/15/2022 TESTO STERO NE,FR EE AND TOTAL free testosterone (direct) 1.6 pg/mL 0.0-4. 2 Not Available [facility] ([facility]) [address] [place], [address], 12/17/2022 11:08:33 12/12/19 23 12/12/2022 PROLA CTIN prolactin 11.0 NG/mL 4.8-23 .3 Not Available [facility] ([facility]) [address] [place], [address], 12/17/2022 11:08:34 12/12/19 23 12/12/2022 ESTRA DIOL estradiol 72.8 pg/mL Adult Femal e: Folli cular phase 12.5 - 166.0 Ovula tion phase 85.8 - 498.0 Lutea l phase 43.8 - 211.0 Postm enopa usal <6.0 - 54.7 Pregn zoya 1st trime ster 215.0 - >4300 .0 Mynor ECLIA metho dolog y Not Available [facility] ([facility]) [address] [facility], [place], [address], 12/17/2022 11:08:35 12/12/19 23 12/12/2022 MAGNE SIUM magnesium 1.9 mg/dL 1.6-2. 3 Not Available [facility] ([facility]) [address] [facility], [place], [address], 12/17/2022 11:08:36 10/22/19 24 10/22/2023 drug scree n, urine THC negati ve Not Available [address], [address], 10/22/2023 16:36:32 10/22/19 24 10/22/2023 drug scree n, urine TCA negati ve Not Available [address], [address], 10/22/2023 16:36:32 10/22/19 24 10/22/2023 drug scree n, urine BAR negati ve Not Available [address], [address], 10/22/2023 16:36:32 10/22/19 24 10/22/2023 drug scree n, urine BZO negati ve Not Available [address], [address], 10/22/2023 16:36:32 10/22/19 24 10/22/2023 drug scree n, urine MTD negati ve Not Available [address], [address], 10/22/2023 16:36:32 10/22/19 24 10/22/2023 drug scree n, urine AMP negati ve Not Available [address], [address], 10/22/2023 16:36:32 10/22/19 24 10/22/2023 drug scree n, urine MOP negati ve Not Available [address], [address], 10/22/2023 16:36:32 10/22/19 24 10/22/2023 drug scree n, urine OXY negati ve Not Available [address], [address], 10/22/2023 16:36:32 10/22/19 24 10/22/2023 drug scree n, urine MDMA negati ve Not Available [address], [address], 10/22/2023 16:36:32 10/22/19 24 10/22/2023 drug scree n, urine MICHELLE negati ve Not Available [address], [address], 10/22/2023 16:36:32 10/22/19 24 10/22/2023 drug scree n, urine PCP negati ve Not Available [address], [address], 10/22/2023 16:36:32 10/22/19 24 10/22/2023 drug scree n, urine MET negati ve Not Available [address], [address], 10/22/2023 16:36:32 05/19/20 23 05/18/2023 XR, chest No observ ation record ed. [facility] [address], [place], [address], 05/20/2023 09:20:12 05/21/20 23 05/18/2023 silvio chin am No observ ation record ed. [facility] [address], [place], [address], 05/21/2023 18:49:10 Result Notes None recorded. Problems Name Problem SNOMED Code Status Onset Date Resolution Date Notes Provider Name and Address Organization Details Recorded Time Anxiety 00359352 Active 023 Senia Stears null, [place] - [facility] 3 10:38:25 Depressive disorder [id number] Active 023 Senia Stears null, [place] - [facility] 3 10:38:31 Problem Notes None recorded. Procedures Surgical History Date Name Laterality Status Provider Name and Address Organization Details Recorded Time 9 Adnexal surgery completed Senia Stears [place] - [facility] 12/07/2022 10:33:42 8 Caesarean Section completed Senia Stears [place] - [facility] 12/07/2022 10:40:56 Imaging Results None recorded. Procedure Notes None recorded. Medical Equipment None Reported. Allergies No known drug allergies Medications Name Sig Start Date Stop Date Status Note LastModified by Organization Details LastModified Time citalopram 10 mg tablet 12/07 completed Not Available Not Available Not Available prednisone 20 mg tablet 12/07 completed Not Available Not Available Not Available phentermine 37.5 mg tablet Take 1 tablet every day by oral route. 2023 active Not Available Not Available Not Avai lable citalopram 20 mg tablet 12/07 completed Not Available Not Available Not Available doxycycline monohydrate 100 mg capsule 12/07 completed Not Available Not Available Not Available neomycin-po lymyxin-dex ameth 3.5 mg/mL-10,00 0 unit/mL-0.1 % eye drops 12/07 completed Not Available Not Available Not Available codeine 10 mg-guaifene sin 100 mg/5 mL oral liquid 12/07 completed Not Available Not Available Not Available Saxenda 3 mg/0.5 mL (18 mg/3 mL) subcutaneou s pen injector Inject 0.6 mg every day by subcutane ous route. 02/01 completed Not Available Not Available Not Available Wegovy 0.25 mg/0.5 mL subcutaneou s pen injector 02/01 completed Not Available Not Available Not Available Vitals Date Recorded Body height Body mass index (BMI) Body weight Body temperature Heart rate Respiratory rate Oxygen saturation Systolic And Diastolic Provider Name and Address Organization Details Last Updated DateTime 4 165.1 cm 44.6 kg/m2 707715. 76 g 97.2 [degF] 92 /min 18 /min 96 % 132/80 mm[Hg] Senia John [place] - [facility] 4 16:30:29 Date Recorded Body weight Body mass index (BMI) Body height Respiratory rate Oxygen saturation Heart rate Body temperature Systolic And Diastolic Provider Name and Address Organization Details Last Updated DateTime 3 802752. 24 g 42.8 kg/m2 165.1 cm 18 /min 98 % 86 /min 97.6 [degF] 128/76 mm[Hg] Senia Eliseos [place] - [facility] 3 10:37:29 Date Recorded Body height Body mass index (BMI) Body weight Body temperature Heart rate Oxygen saturation Respiratory rate Pain severity - 0-10 verbal numeric rating [Score] - Reported Systolic And Diastolic Provider Name and Address Organization Details Last Updated DateTime 3 165.1 cm 42.8 kg/m2 258409. 24 g 98 [degF] 92 /min 98 % 18 /min 0 132/80 mm[Hg] Gisselle Zhong [place] - [facility] 3 13:09:28 Date Recorded Body height Body mass index (BMI) Body weight Body temperature Heart rate Oxygen saturation Respiratory rate Pain severity - 0-10 verbal numeric rating [Score] - Reported Systolic And Diastolic Provider Name and Address Organization Details Last Updated DateTime 3 165.1 cm 39.2 kg/m2 984175. 01 g 97.4 [degF] 88 /min 98 % 18 /min 0 118/78 mm[Hg] Gisselle Trevin [place] - [facility] 15:30:19 Social History Question Answer Notes LastModified by Organizat ion Details LastModified Time Tobacco Smoking Status Former Smoker Senia John [place], [place] - [facility] 12/07/2022 10:33:42 Do You Have An Advance Directive? No Information not available 12/07/2022 Are You Blind Or Do You Have Difficulty Seeing? No Information not available 12/07/2022 Is Blood Transfusion Acceptable In An Emergency? Yes Information not available 12/07/2022 What Is Your Level Of Caffeine Consumption? Occasional Information not available 12/07/2022 How Much Tobacco Do You Chew? None Information not available 12/07/2022 Are You Deaf Or Do You Have Serious Difficulty Hearing? No Information not available 12/07/2022 What Type Of Diet Are You Following? REGULAR Information not available 12/07/2022 Which Illicit Or Recreational Drugs Have You Used? None Information not available 12/07/2022 What Is The Highest Grade Or Level Of School You Have Completed Or The Highest Degree You Have Received? [id number] Information not available 12/07/2022 Have There Been Any Changes To Your Family Or Social Situation? No Information not available 12/07/2022 What Is The Fluoride Status Of Your Home? Unknown Information not available 12/07/2022 When Did You Quit Smoking? 1-5yearssinrosario cardenas Stopped In -2020 Information not available 12/07/2022 How Many Years Have You Used Illicit Or Recreational Drugs? 0 Information not available 12/07/2022 Do You Have A Medical Power Of Clinical Coordinator? No Information not available 12/07/2022 What Was The Date Of Your Most Recent Tobacco Screening? 10/22/2023 Information not available 10/22/2023 How Many Children Do You Have? 3 Information not available 12/07/2022 What Is Your Current Pack Years? 10-19packyears Information not available 12/07/2022 Do You Use Protection During Sex? No Information not available 12/07/2022 Do You Use Protection Against STDs? No Information not available 12/07/2022 What Is Your Relationship Status? Information not available 12/07/2022 Do You Use Your Seat Belt Or Car Seat Routinely? Yes Information not available 12/07/2022 Are You Sexually Active? Yes Information not available 12/07/2022 Do You Have Smoke And Carbon Monoxide Detectors In Your Home? Yes Information not available 12/07/2022 At What Age Did You Start Smoking Tobacco? 20 Information not available 12/07/2022 Are You Passively Exposed To Smoke? No Information not available 12/07/2022 How Much Tobacco Do You Smoke? No Information not available 10/22/2023 Do You Use Sunscreen Routinely? No Information not available 12/07/2022 Has Tobacco Cessation Counseling Been Provided? No cbuckler Information not available 02/01/2023 How Many Years Have You Smoked Tobacco? 15 Information not available 12/07/2022 Do You Have Difficulty Walking Or Climbing Stairs? No Information not available 12/07/2022 How Many Years Have You Used E-cigarettes Or Vape? 2 Information not available 12/07/2022 Sex: Female Functional Status Question Answer Note LastModified by Organizat ion Details LastModified Time How many times per week do you consume alcohol? Less than 1 time per week Information not available 12/07/2022 Do you or have you ever used smokeless tobacco? Never used smokeless tobacco Information not available 12/07/2022 Are you currently employed? No Information not available 10/22/2023 Do you have transportation difficulties? No Information not available 12/07/2022 Are you able to care for yourself independently? Yes Information not available 12/07/2022 Do you have difficulty dressing, bathing, grooming, or toileting? No Information not available 12/07/2022 Do you or have you ever used e-cigarettes or vape? Current user of electronic cigarettes Information not available 12/07/2022 What is your exercise level? Moderate Information not available 12/07/2022 Do you use any illicit or recreational drugs? No Information not available 12/07/2022 Do you or have you ever used any other forms of tobacco or nicotine? No Information not available 12/07/2022 What is your level of alcohol consumption? Occasional Information not available 12/07/2022 Are you able to walk independently without assistance or assistive devices? YESWOREST Information not available 12/07/2022 Do you have difficulty doing errands alone? No Information not available 12/07/2022 What is your occupation? unemployed Information not available 10/22/2023 Mental Status Question Answer Note LastModified by Organizat ion Details LastModified Time Do you feel stressed (tense, restless, nervous, or anxious, or unable to sleep at night)? [id number] Information not available 12/07/2022 Do you have difficulty concentrating, remembering or making decisions? No Information no t available 12/07/2022 Family History Relationship Description Onset Age of this Age Resolved Age Notes LastModified by Organization Details LastModified Time Mother Disorder of thyroid gland bstears Not available 2022 10:33:41 Mother Obesity bstears Not available 0 12/07/2022 10:33:41 Father Hypercholest erolemia bstears Not available 2022 10:33:41 Father Obesity bstears Not available 0 12/07/2022 10:33:41 Father Diabetes mellitus bstears Not available 2022 10:33:41 Unspecified Relation Anxiety disorder bstears Not available 2022 10:33:41 Brother Asthma bstears Not available 0 12/07/2022 10:33:41 Sister Disorder of thyroid gland bstears Not available 2022 10:33:41 Medical History Condition Response Anxiety Disorder Y Allergies/Hayfever Y Skin Problems Y Obesity Y Depression Y Gynecological History Statement/Question Response Abnormal Pap N Date of Last Mammogram Flow Heavy Date of LMP 09/24/2023 STIs/STDs N HPV Vaccine Y Duration of Flow (days) 7 Current Control Method Tubal Ligat ion Age at Menarche 16 Age at First Child 22 Date of Last Colonoscopy Frequency of Cycle (Q days) 1 Most Recent Bone Density Sexually Active? Y Menses Monthly Y Sexual Problems? N LMP Approximate Hormone Replacement Therapy N Obstetrics History GPAL:G 3 P 0 0 0 0 Past Encounters Encounter ID Performer Location Encounter Start Date Encounter Closed Date Diagnosis/Indication Diagnosis SNOMED-CT Code Diagnosis ICD10 Code Diagnosis IMO Codes Diagnosis Note [id number] Dorita Cowan [address] [address] 12/07/2022 10:04:22 12/07/2022 11:26:03 Body mass index 40+ - severely obese 747553632 Z68.41 42.8 Anxiety 64631069 F41.9 Depressive disorder 3548 9007 F32.A [id number] Reubenjudy Cowan [address] [address] 12/11/2022 12:57:05 12/11/2022 13:59:21 Morbid obesity 365814293 E66.01 42.8Pt compliant with plan of careKasper reviewed and appropriat emedicatio n compliance discussedL ast uds: 3Control substance agreement on file Body mass index 40+ - severely obese 942854433 Z68.41 42.8 Hyperlipidemia 59518955 E78.5 Acne 46447408 L70.9 Unintentio nal weight gain 5067032305 30760 R63.5 Excessive growth of facial hair 962544595 L68.2 Long-term drug therapy 753850058 Z79.316 [id number] Dorita Cowan [address] [address] 02/01/2023 15:15:24 02/01/2023 15:52:48 Morbid obesity 980599606 E66.01 42.8Pt compliant with plan of careKasper reviewed and appropriat emedicatio n compliance discussedL ast uds: 3Control substance agreement and adipex consent on file Body mass index 30+ - obesity 606100662 Z68.39 continue diet and exercise plan Obesity 583717066 E66.9 [id number] Dorita Cowan APRN [facility] [address] [place] [address] 10/22/2023 16:23:03 10/22/2023 17:10:44 Long-term current use of drug therapy 889244193 Z79.899 Depressive disorder 3548 9007 F32.A Anxiety 09538610 F41.9 Obesity 254477142 E66.9 low fat/calori e/carb diet and exercise plan Morbid obesity 354624430 E66.01 44.6Pt compliant with plan of careKasper reviewed and appropriat emedicatio n compliance discussedL ast uds: 4Control substance agreement and adipex consent on file Health Concerns Section Related Observation LastModified by Organization Detai ls LastModified Time None Recorded Concern Status LastModified by Organization Details LastModified Time None Recorded Advance Directives Directive N: Payers Insurance Date Sequence Insurance Name Policy Number Policy Hatch Covered Member ID Hatch Member ID Guarantor Name 10/29/2023 1 [employer] - [employer] [id number] Alina Blunt [id number] Alina Blunt 10/22/2023 2 [employer] - [employer] [id number] Alina Blunt [id number] Alina Blunt 11/16/2023 2 [employer] [id number] Alina Blunt [id number] Alina Blunt 02/28/2023 1 [employer] [id number] Alina Blunt [id number] Alina Blunt Notes Date Note Type Note Provider Name and Address Organization Details Recorded Time 12/07/2022 text/html Alina is a 37 year old female who presents to the office today to discussweight loss, pt states she has put on over 100 lbs in 1 year.pt states her acne has gotten worsen on her face and neck over the last few months Dorita Cowan APRN [address], [place], [address], [place] - [facility] 12/07/2022 11:30:19 12/11/2022 text/html 37 yr old female presents to follow up on her lab work and discuss hormone labs and diet.pt states she has gained over 100 lbs in a year and has facial hair and acne. pt states she has been to wt loss clinics and nothing seems to help lose wt. Dorita CowanMARCELO [address], [place], [address], [facility] - [facility] 01/31/2023 11:09:18 02/01/2023 text/html 37 yr old female presents to follow up on weight loss. pt states she is doing well on adipex, down 22 lbs. pt states she is watching her diet close and exercising Dorita CowanMARCELO [address], [place], [address], [employer] [facility] - [facility] 02/01/2023 15:50:45 10/22/2023 text/html 38 year old female who presents to the office today with concerns ofwanting to restart adipex. pt states she has been dieting but has not been successful. pt states anxiety and depression are doing good. pt states her father passed on the 16 after a long illness Dorita CowanMARCELO [address], [place], [address], [facility] - [facility] 10/22/2023 17:26:31 OBGyn Episode No OBEpisode recorded.
--- OUTSIDE RECORDS SUMMARY | 2025-08-24 14:13 | XMS_ITS | Clinical Summary ---
[facility] Address [address] [place] [address] Care Team Providers Care Seo Consultant Name Role Phone Provider, No Known Primary [...] of Binge Drinking Not on file 11/22 [place] Depression Scale Answer Date Recorded [place] Depression Scale Total 0 12/12/2018 The thought of harming myself has occurred to me . Unrecognized value 12/12/2018 Abuse Screen Answer Date Recorded Unsafe at Home or Work/School Not on file Feels Threatened by Someone? Not on file 08/2023 Does Anyone Keep You from Co ntacting Others or Doint Things Outside the Home? Not on file 07/04/2023 Physical Sign of Abuse Present Not on file 1 Housing Stability Answer Date Recorded Current Living Arrangements Not on file 06/23 Potentially Unsafe Housing Conditions Not on jose [...] patient's age to complete this topic [place] [address] [place] [address] Advance Directives * CPR (Attempt to Resuscitate) [...] pulse or is breathing): Full Care Teams Seo Consultant Relationship Specialty Start Date End Date Provider, [place] [address] PCP - General 12/02/18
== END 2025-08-23 23:59 | disposition home or self-care (01) ==
LOC: LAB.DROPOF 08-24 14:08
PROVIDERS: PCP Nurse Practitioner Family; Visit Provider Nurse Practitioner Family
DX: F41.9 Anxiety disorder, unspecified (principal); F32.A Depression, unspecified; Z11.59 Encounter for screening for other viral diseases; Z11.4 Encounter for screening for human immunodeficiency virus [HIV]
CPT/HCPCS: 80053; 84443; 85025; 86803; 87340; 87389